=== PATIENT | male | born 1960 | race Caucasian/White ===

== ENCOUNTER 2018-09-29 23:19 | Inpatient (IN) ==
[2018-09-30] MEDS ORDERED: Acetaminophen 325 MG Tablet PO PRN (04:37)
[2018-09-30] MEDS ORDERED: Sodium Chloride 0.9% 2 ML Flush PRN IV.FLUSH (04:51)
[2018-09-30] MEDS: Sod Chloride 0.9% Inj 1,000 ML IV.CONT SCH ×2 (06:13→16:36)
[2018-09-30] MEDS: Morphine Sulfate Inj 2 MG/ML Vial IV.PUSH PRN ×2 (07:34→10:36)
[2018-09-30] MEDS: Sodium Chloride 0.9% 2 ML Flush BID IV.FLUSH SCH ×2 (09:01→21:50)
[2018-09-30] MEDS ORDERED: HYDROmorphone PF Inj 1 MG/ML Ampul IV.PUSH PRN (12:36)
[2018-09-30] MEDS ORDERED: Morphine Inj 4 MG/ML Vial IV.PUSH PRN (12:36)
[2018-09-30] MEDS ORDERED: Naloxone Inj 0.4 MG/ML Vial IV.PUSH PRN (12:36)
[2018-09-30] MEDS: Ciprofloxacin 400 MG/200 ML 400 MG/200 ML PIGGYBACK IV.SIG SCH (14:17)
[2018-09-30] MEDS: oxyCODONE/Acetaminophen 10/325 Tablet PO PRN ×2 (14:18→21:14)
--- NOTE | 2018-09-30 15:17 | P.HP ---
History of Present Illness Service: Hospitalist Primary Care Physician: UNKNOWN Chief Complaint: Abdominal pain History of Present Illness: Patient is a 58-year-old male who presented to the emergency room with a complaint of lower left quadrant and suprapubic abdominal pain for the last 5 days. He has a known history of diverticular colitis. Has previously had 4 other episodes but not as painful as this 1. He did take an antibiotic that his daughter gave him but he does not remember the name of it. He also states that he has been constipated and has not had a bowel movement in several days. He did take a laxative but it was not effective for him. He denies chest pain or shortness of breath. No nausea vomiting or diarrhea. He has had fevers and chills. Other past medical history is significant for GERD; patient does not have consistent primary care. Reports that he has controlled his acid reflux in the past with OTC Pepcid as needed. - Diagnosis (1) Diverticulitis Review of Systems All other systems reviewed negative except as stated in HPI [facility] - History History Provided By: Patient - Medical History Medical History: Medical History (Last Updated 09/30/18 @ 15:07 by MAGNOLIA Mcmanus) Degenerative disc disease Diverticula of intestine GERD (gastroesophageal reflux disease) Scoliosis - Surgical History Surgical History: Surgical History (Last Updated 09/30/18 @ 15:08 by MAGNOLIA Mcmanus) Hx of tonsillectomy - Family History Family History: Family History (Last Updated 09/30/18 @ 15:08 by MAGNOLIA Mcmanus) Mother Diverticula of colon - Social History I have reviewed the patient's Social History: Yes - Tobacco History Second Hand Smoke Exposure: No Tobacco Use In Past 30 Days: Yes Smoking Status: Current every day smoker Tobacco Type: Cigarettes - Alcohol History How Often Do You Have a Drink Containing Alcohol: Monthly or less - Substance Use History Substance History: No History of Abuse Medications and Allergies Active Medications: Active Medications Acetaminophen (Tylenol) 650 mg PO Q4H PRN PRN Reason: Temp > 100.4 Hydromorphone HCl (Dilaudid Pf Inj) 1 mg IV.PUSH Q3H PRN PRN Reason: BREAKTHROUGH PAIN Sodium Chloride (Ns Inj) 1,000 mls @ 100 mls/hr IV.CONT .Q10H [facility] Last Admin: 09/30/18 06:13 Dose: 100 mls/hr Ciprofloxacin/Dextrose (Cipro 400 Mg/200 Ml Inj) 400 mg in 200 mls @ 200 mls/ hr IV.SIG Q12H [facility] Last Admin: 09/30/18 14:17 Dose: 200 mls/hr Metronidazole/Sodium Chloride (Flagyl 500 Mg Inj) 100 mls @ 100 mls/hr IV.SIG Q6H [facility] Last Infusion: 09/30/18 10:28 Dose: Infused Morphine Sulfate (Morphine Inj) 4 mg IV.PUSH Q3H PRN PRN Reason: PAIN 6-10;IF UNABLE TO TAKE PO Naloxone HCl (Narcan Inj) 0.4 mg IV.PUSH UNSCH PRN PRN Reason: SEE LABEL COMMENTS Ondansetron HCl (Zofran Inj) 4 mg IV.PUSH Q6H PRN PRN Reason: NAUSEA OR VOMITING Oxycodone/Acetaminophen (Percocet 5/325 Mg) 1 tab PO Q6H PRN PRN Reason: PAIN SCALE 3 TO 5 Oxycodone/Acetaminophen (Percocet 10/325 Mg) 1 tab PO Q6H PRN PRN Reason: PAIN SCALE 6 TO 10 Last Admin: 09/30/18 14:18 Dose: 1 tab Sodium Chloride (Ns Flush) 2 ml IV.FLUSH BID [facility] Last Admin: 09/30/18 09:01 Dose: Not Given Sodium Chloride (Ns Flush) 2 ml IV.FLUSH PRN PRN PRN Reason: FLUSH AFTER USING IV ACCESS Allergies Allergy/AdvReac Type Severity Reaction Status Date / Time No Known Allergies Allergy Verified 09/29/18 23:35 Home Medications Medication Instructions Recorded Confirmed Type No Known Home Medications 09/29/18 09/29/18 History Exam Vital signs: Vital Signs 09/30/18 04:09 09/30/18 08:00 09/30/18 11:56 Temperature 99.5 F 98.2 F 98.0 F Pulse Rate 60 68 64 Respiratory Rate 19 18 20 Blood Pressure 132/71 140/78 136/74 Pulse Oximetry 97 99 96 Intake & Output 09/29/18 09/30/18 09/30/18 18:59 06:59 18:59 Intake Total 100 / 100 Balance 100 / 100 Weight 84 kg Intake: IV 100 / 100 Flagyl 500 MG Inj 100 ML @ 100 100 / 100 mls/hr IV.SIG Q6H [facility] Rx#: [id number] Other: # Voids 1 Date of Last Bowel Movement 09/27/18 Weight On Admission 84 kg Narrative: GENERAL: Well-nourished, well-developed adult male in no obvious distress. SKIN: Warm and dry. HEAD: Atraumatic. Normocephalic. CARDIOVASCULAR: Regular rate and rhythm. RESPIRATORY: No accessory muscle use. Clear to auscultation. Breath sounds equal bilaterally. GASTROINTESTINAL: Abdomen soft, tender LLQ, non-distended. Positive bowel sounds. MUSCULOSKELETAL: Extremities without clubbing, cyanosis, or edema. No obvious deformities. NEUROLOGICAL: Awake and alert. No obvious cranial nerve deficits. Motor grossly within normal limits. Normal speech. PSYCHIATRIC: Appropriate mood and affect; insight and judgment good. Caprini VTE Risk Assessment Caprini VTE Risk Assessment: No/Low Risk (score <= 1) Caprini Risk Assessment Model: Point Value = 1 Point Value = 2 Point Value = 3 Point Value = 5 Age 41-60 Minor surgery BMI > 25 kg/m2 Swollen legs Varicose veins or History of unexplained or recurrent spontaneous Oral contraceptives or hormone replacement Sepsis (< 1 month) Serious lung disease, including pneumonia (< 1 month) Abnormal pulmonary function Acute myocardial infarction Congestive heart failure (< 1 month) History of inflammatory bowel disease Medical patient at bed rest Age 61-74 Arthroscopic surgery Major open surgery (> 45 min) Laparoscopic surgery (> 45 min) Malignancy Confined to bed (> 72 hours) Immobilizing plaster cast Central venous access Age >= 75 History of VTE Family history of VTE Factor V Leiden Prothrombin [id number] Lupus anticoagulant Anticardiolipin antibodies Elevated serum homocysteine Heparin-induced thrombocytopenia Other congenital or acquired thrombophilia Stroke (< 1 month) Elective arthroplasty Hip, pelvis, or leg fracture Acute spinal cord injury (< 1 month) Prophylaxis Regimen: Total Risk Factor Score Risk Level Prophylaxis Regimen 0-1 Low Early ambulation 2 Moderate Order ONE of the following: *Sequential Compression Device (SCD) *Heparin 5000 units SQ BID 3-4 Higher Order ONE of the following medications: *Heparin 5000 units SQ TID *Enoxaparin/Lovenox 40 mg SQ daily (WT < 150 kg, CrCl > 30 mL/min) *Enoxaparin/Lovenox 30 mg SQ daily (WT < 150 kg, CrCl > 10-29 mL/min) *Enoxaparin/Lovenox 30 mg SQ BID (WT < 150 kg, CrCl > 30 mL/min) AND/OR *Sequential Compression Device (SCD) 5 or more Highest Order ONE of the following medications: *Heparin 5000 units SQ TID (Preferred with Epidurals) *Enoxaparin/Lovenox 40 mg SQ daily (WT < 150 kg, CrCl > 30 mL/min) *Enoxaparin/Lovenox 30 mg SQ daily (WT < 150 kg, CrCl > 10-29 mL/min) *Enoxaparin/Lovenox 30 mg SQ BID (WT < 150 kg, CrCl > 30 mL/min) AND *Sequential Compression Device (SCD) Assessment and Plan - Assessment (1) Diverticulitis Code(s): K57.92 - Diverticulitis of intestine, part unspecified, without perforation or abscess without bleeding Status: Acute - Plan Patient is a 58-year-old male with a past medical history of diverticulitis and GERD. He presented to the emergency room with left lower quadrant and suprapubic pain times 5 days. Diverticulitis -GI consulted -Started on Cipro and Flagyl -Pain control as needed DVT prophylaxis: SCDs; patient is ambulatory Discharge planning: Likely home. [facility] Prescription Drug Monitoring Database has been queried and verified prior to prescribing the controlled substance. Acute pain exception: This patient has normal, predicted, physiological, and time limited response to an adverse mechanical stimulus associated with surgery , trauma, or acute illness as described in my notes. There is a lack of alternative treatment options other than to include the prescribed narcotic treatment for this condition.
--- NOTE | 2018-09-30 15:35 | P.CONGI ---
History of Present Illness Consult date: 10/07/18 Consult reason: Sigmoid diverticulitis with small intramural abscess involving the proximal sigmoid Chief complaint: Sigmoid Diverticulitis w Small Intramural Abscess History of Present Illness: This patient is a 58-year-old male who presented to the emergency room at [facility] on 09/29/2018 with complaint of left lower quadrant and suprapubic abdominal pain for 5 days. Patient has a significant medical history of diverticulitis stating he has had 4 previous episodes in the past. Patient states he took laxatives and antibiotics given to him by a family member without any relief or effect. He states that this pain is more severe than any other episode that he has had in the past. He endorses nausea but denies vomiting. Patient denies any aggravating or alleviating factors and rates pain at 5 out of 10 at this time. States he had a temperature of 101. Patient denies any previous abdominal surgeries. Patient states he smokes 1 pack/day cigarettes and is a social drinker. He reports family history positive for diverticulitis and acid reflux. Patient states he gets occasional heartburn but takes Prilosec occasionally which relieves symptoms. Our service has been consulted to evaluate patient's sigmoid diverticulitis <Kacy Moseley - Last Filed: 09/30/18 15:21> Review of Systems All other systems reviewed negative except as stated in HPI <Kacy Moseley - Last Filed: 09/30/18 15:21> PMF[facility] - History History Provided By: Patient - Medical History Medical History: Medical History (Last Updated 09/30/18 @ 15:07 by MAGNOLIA Mcmanus) Degenerative disc disease Diverticula of intestine GERD (gastroesophageal reflux disease) Scoliosis - Surgical History Surgical History: Surgical History (Last Updated 09/30/18 @ 15:08 by MAGNOLIA Mcmanus) Hx of tonsillectomy - Family History Family History: Family History (Last Updated 09/30/18 @ 15:08 by MAGNOLIA Mcmanus) Mother Diverticula of colon - Tobacco History Second Hand Smoke Exposure: No Tobacco Use In Past 30 Days: Yes Smoking Status: Current every day smoker Tobacco Type: Cigarettes - Alcohol History How Often Do You Have a Drink Containing Alcohol: Monthly or less - Substance Use History Substance History: No History of Abuse <Kacy Moseley - Last Filed: 09/30/18 15:21> - Medical History Medical History: Medical History (Last Updated 09/30/18 @ 15:07 by MAGNOLIA Mcmanus) Degenerative disc disease Diverticula of intestine GERD (gastroesophageal reflux disease) Scoliosis - Surgical History Surgical History: Surgical History (Last Updated 09/30/18 @ 15:08 by MAGNOLIA Mcamnus) Hx of tonsillectomy - Family History Family History: Family History (Last Updated 09/30/18 @ 15:08 by MAGNOLIA Mcmanus) Mother Diverticula of colon <Jeanna Brito - Last Filed: 09/30/18 18:41> Medications and Allergies Active Medications: Active Medications Acetaminophen (Tylenol) 650 mg PO Q4H PRN PRN Reason: Temp > 100.4 Hydromorphone HCl (Dilaudid Pf Inj) 1 mg IV.PUSH Q3H PRN PRN Reason: BREAKTHROUGH PAIN Sodium Chloride (Ns Inj) 1,000 mls @ 100 mls/hr IV.CONT .Q10H [facility] Last Admin: 09/30/18 06:13 Dose: 100 mls/hr Ciprofloxacin/Dextrose (Cipro 400 Mg/200 Ml Inj) 400 mg in 200 mls @ 200 mls/ hr IV.SIG Q12H [facility] Last Admin: 09/30/18 14:17 Dose: 200 mls/hr Metronidazole/Sodium Chloride (Flagyl 500 Mg Inj) 100 mls @ 100 mls/hr IV.SIG Q6H [facility] Last Infusion: 09/30/18 10:28 Dose: Infused Morphine Sulfate (Morphine Inj) 4 mg IV.PUSH Q3H PRN PRN Reason: PAIN 6-10;IF UNABLE TO TAKE PO Naloxone HCl (Narcan Inj) 0.4 mg IV.PUSH UNSCH PRN PRN Reason: SEE LABEL COMMENTS Ondansetron HCl (Zofran Inj) 4 mg IV.PUSH Q6H PRN PRN Reason: NAUSEA OR VOMITING Oxycodone/Acetaminophen (Percocet 5/325 Mg) 1 tab PO Q6H PRN PRN Reason: PAIN SCALE 3 TO 5 Oxycodone/Acetaminophen (Percocet 10/325 Mg) 1 tab PO Q6H PRN PRN Reason: PAIN SCALE 6 TO 10 Last Admin: 09/30/18 14:18 Dose: 1 tab Sodium Chloride (Ns Flush) 2 ml IV.FLUSH BID [facility] Last Admin: 09/30/18 09:01 Dose: Not Given Sodium Chloride (Ns Flush) 2 ml IV.FLUSH PRN PRN PRN Reason: FLUSH AFTER USING IV ACCESS <Kacy Moseley - Last Filed: 09/30/18 15:21> Active Medications: Active Medications Acetaminophen (Tylenol) 650 mg PO Q4H PRN PRN Reason: Temp > 100.4 Hydromorphone HCl (Dilaudid Pf Inj) 1 mg IV.PUSH Q3H PRN PRN Reason: BREAKTHROUGH PAIN Sodium Chloride (Ns Inj) 1,000 mls @ 100 mls/hr IV.CONT .Q10H [facility] Last Admin: 09/30/18 16:36 Dose: 100 mls/hr Ciprofloxacin/Dextrose (Cipro 400 Mg/200 Ml Inj) 400 mg in 200 mls @ 200 mls/ hr IV.SIG Q12H [facility] Last Infusion: 09/30/18 16:37 Dose: Infused Metronidazole/Sodium Chloride (Flagyl 500 Mg Inj) 100 mls @ 100 mls/hr IV.SIG Q6H [facility] Last Infusion: 09/30/18 17:42 Dose: Infused Morphine Sulfate (Morphine Inj) 4 mg IV.PUSH Q3H PRN PRN Reason: PAIN 6-10;IF UNABLE TO TAKE PO Naloxone HCl (Narcan Inj) 0.4 mg IV.PUSH UNSCH PRN PRN Reason: SEE LABEL COMMENTS Ondansetron HCl (Zofran Inj) 4 mg IV.PUSH Q6H PRN PRN Reason: NAUSEA OR VOMITING Oxycodone/Acetaminophen (Percocet 5/325 Mg) 1 tab PO Q6H PRN PRN Reason: PAIN SCALE 3 TO 5 Oxycodone/Acetaminophen (Percocet 10/325 Mg) 1 tab PO Q6H PRN PRN Reason: PAIN SCALE 6 TO 10 Last Admin: 09/30/18 14:18 Dose: 1 tab Sodium Chloride (Ns Flush) 2 ml IV.FLUSH BID [facility] Last Admin: 09/30/18 09:01 Dose: Not Given Sodium Chloride (Ns Flush) 2 ml IV.FLUSH PRN PRN PRN Reason: FLUSH AFTER USING IV ACCESS <Jeanna Brito - Last Filed: 09/30/18 18:41> Allergies Allergy/AdvReac Type Severity Reaction Status Date / Time No Known Allergies Allergy Verified 09/29/18 23:35 Home Medications Medication Instructions Recorded Confirmed Type No Known Home Medications 09/29/18 09/29/18 History Exam Vital signs: Vital Signs 09/30/18 04:09 09/30/18 08:00 09/30/18 11:56 Temperature 99.5 F 98.2 F 98.0 F Pulse Rate 60 68 64 Respiratory Rate 19 18 20 Blood Pressure 132/71 140/78 136/74 Pulse Oximetry 97 99 96 Intake & Output 09/29/18 09/30/18 09/30/18 18:59 06:59 18:59 Intake Total 100 / 100 Balance 100 / 100 Weight 84 kg Intake: IV 100 / 100 Flagyl 500 MG Inj 100 ML @ 100 100 / 100 mls/hr IV.SIG Q6H [facility] Rx#: [id number] Other: # Voids 1 Date of Last Bowel Movement 09/27/18 Weight On Admission 84 kg - Constitutional no acute distress - Routine HEENT Exam Head: Present: normocephalic - Routine Respiratory Exam Present: CTA bilaterally. Absent: accessory muscle use - Routine Cardiovascular Exam Present: RRR - Routine Abdominal Exam Present: soft, normoactive bowel sounds, tenderness. Absent: distended, guarding, firm Comments: Suprapubic tenderness on palpation during exam - Routine Extremities Exam Present: full ROM, pulses intact. Absent: edema - Routine Skin Exam Present: dry, warm - Routine Neurological Exam Present: alert, oriented X3 <Moseley,Kacy - Last Filed: 09/30/18 15:21> Vital signs: Vital Signs 09/30/18 04:09 09/30/18 08:00 09/30/18 11:56 Temperature 99.5 F 98.2 F 98.0 F Pulse Rate 60 68 64 Respiratory Rate 19 18 20 Blood Pressure 132/71 140/78 136/74 Pulse Oximetry 97 99 96 09/30/18 16:30 Temperature 98.4 F Pulse Rate 64 Respiratory Rate 18 Blood Pressure 133/62 Pulse Oximetry 97 Intake & Output 09/29/18 09/30/18 09/30/18 18:59 06:59 18:59 Intake Total 1400 / 1400 Balance 1400 / 1400 Weight 84 kg Intake: IV 1400 / 1400 NS Inj 1,000 ML @ 100 mls/hr IV 1000 / 1000 .CONT .Q10H [facility] Rx#:[id number] Cipro 400 MG/200 ML Inj 400 mg 200 / 200 In 200 ml @ 200 mls/hr IV.SIG Q12H [facility] Rx#:[id number] Flagyl 500 MG Inj 100 ML @ 100 200 / 200 mls/hr IV.SIG Q6H [facility] Rx#: [id number] Other: # Voids 1 Date of Last Bowel Movement 09/27/18 Weight On Admission 84 kg <Jeanna Brito - Last Filed: 09/30/18 18:41> Assessment and Plan (1) Diverticulitis Status: Acute Code(s): K57.92 - Diverticulitis of intestine, part unspecified , without perforation or abscess without bleeding - Plan This patient is a 58-year-old male who presented to the emergency room at [facility] on 09/29/2018 with complaint of left lower quadrant and suprapubic abdominal pain for 5 days. Patient has a significant medical history of diverticulitis stating he has had 4 previous episodes in the past. Patient states he took laxatives and antibiotics given to him by a family member without any relief or effect. He states that this pain is more severe than any other episode that he has had in the past. He endorses nausea but denies vomiting. Patient denies any aggravating or alleviating factors and rates pain at 5 out of 10 at this time. States he had a temperature of 101. Patient denies any previous abdominal surgeries. Patient states he smokes 1 pack/day cigarettes and is a social drinker. He reports family history positive for diverticulitis and acid reflux. Patient states he gets occasional heartburn but takes Prilosec occasionally which relieves symptoms. Patient denies any history of ever having had endoscopy. Our service has been consulted to evaluate patient's sigmoid diverticulitis Diverticulitis 09/30/2018 CT abdomen and pelvis revealed the following findings: Prominent sigmoid diverticulitis with small intramural abscess involving the proximal sigmoid. WBC 12.4 hemoglobin 16.8 hematocrit 46.1 Plan -Clear liquid diet -Continue IV antibiotics -Monitor labs -Analgesics and antiemetics as per attending -Colonoscopy estimated 6 weeks post hospitalization -Supportive care -Further recommendations to follow This patient has been seen by myself and Dr. Brito and this note is written on her behalf - Attending Attestation Dr. Brito <Kacy Moseley - Last Filed: 09/30/18 15:21> (1) Diverticulitis Status: Acute Code(s): K57.92 - Diverticulitis of intestine, part unspecified , without perforation or abscess without bleeding - Attending Attestation seen, examined agree with above if no improvement consider general surgery eval <Jeanna Brito - Last Filed: 09/30/18 18:41>
[2018-10-01] MEDS: Ciprofloxacin 400 MG/200 ML 400 MG/200 ML PIGGYBACK IV.SIG SCH ×2 (01:17→14:59)
[2018-10-01] MEDS: Sod Chloride 0.9% Inj 1,000 ML IV.CONT SCH ×3 (01:17→22:00)
[2018-10-01] MEDS: oxyCODONE/Acetaminophen 10/325 Tablet PO PRN ×3 (05:05→20:52)
[2018-10-01 07:01] LABS: Baso % (Auto) 0.3 % (0.0-2.0); Eos % (Auto) 0.3 % (0.0-4.0); Hematocrit 43.6 % (39.0-51.0); Hemoglobin 15.4 gm/dL (13.0-17.0); Lymph # (Auto) 1.8 th/mm3 (1.0-4.8); Lymph % (Auto) 11.9 % (9.0-44.0); Mean Corpuscular HGB Conc 35.4 % (32.0-36.0); Mean Platelet Volume 8.3 fL (7.0-11.0); Mono # (Auto) 1.4 th/mm3 (0.0-0.9); Mono % (Auto) 9.3 % (0.0-8.0); Neut # (Auto) 11.6 th/mm3 (1.8-7.7); Neut % (Auto) 78.2 % (16.0-70.0); Platelet Count 218 th/mm3 (150-450); Red Blood Count 4.54 mil/mm3 (4.50-5.90); Red Cell Distribution Width 13.7 % (11.6-17.2); White Blood Count 14.8 th/mm3 (4.0-11.0)
[2018-10-01 07:23] LABS: Anion Gap 10 meq/L (5-15); Blood Urea Nitrogen 9 mg/dL (7-18); Calcium 8.3 mg/dL (8.5-10.1); Carbon Dioxide 23.6 meq/L (21.0-32.0); Chloride 104 meq/L (98-107); Glomerular Filtration Rate Greater Than 89 mL/min (>89); Glucose,Random 90 mg/dL (74-106); Potassium 3.9 meq/L (3.5-5.1); Sodium 138 meq/L (136-145)
--- NOTE | 2018-10-01 09:18 | P.PNGI ---
Subjective Interval history: Patient is resting in bed, significant other at bedside Patient complains of mid lower abdominal pain Patient states that he tried not taking his pain medication at 3 AM this morning , but that the pain was excruciating by 5 AM Denies any nausea or vomiting Tolerating clear liquids States that he had a liquidy bowel movement last night after 5 days of no BM <Alba Finley - Last Filed: 10/01/18 09:09> Physical Exam Vital signs: Vital Signs 09/30/18 11:56 09/30/18 16:30 09/30/18 20:00 Temperature 98.0 F 98.4 F 99.4 F Pulse Rate 64 64 75 Respiratory Rate 20 18 20 Blood Pressure 136/74 133/62 145/74 H Pulse Oximetry 96 97 94 L 10/01/18 00:00 10/01/18 03:33 10/01/18 07:30 Temperature 99.1 F 99.0 F 97.9 F Pulse Rate 59 L 66 64 Respiratory Rate 20 20 20 Blood Pressure 120/68 129/72 136/72 Pulse Oximetry 96 96 98 Intake & Output 09/30/18 10/01/18 10/01/18 18:59 06:59 18:59 Intake Total 1400 / 1400 2340 / 2340 Balance 1400 / 1400 2340 / 2340 Intake: IV 1400 / 1400 1400 / 1400 NS Inj 1,000 ML @ 100 mls/hr IV 1000 / 1000 1000 / 1000 .CONT .Q10H [facility] Rx#:[id number] Cipro 400 MG/200 ML Inj 400 mg 200 / 200 200 / 200 In 200 ml @ 200 mls/hr IV.SIG Q12H [facility] Rx#:[id number] Flagyl 500 MG Inj 100 ML @ 100 200 / 200 200 / 200 mls/hr IV.SIG Q6H [facility] Rx#: [id number] Oral 940 / 940 Other: # Voids 3 6 Date of Last Bowel Movement 09/30/18 - Constitutional no acute distress - Routine HEENT Exam Head: Present: normocephalic, atraumatic - Routine Respiratory Exam Absent: accessory muscle use - Routine Cardiovascular Exam Present: RRR - Routine Abdominal Exam Present: soft, normoactive bowel sounds, tenderness (mid lower abdominal pain ) . Absent: distended - Routine Skin Exam Present: dry, warm - Routine Neurological Exam Present: alert, oriented X3 <Alba Finley - Last Filed: 10/01/18 09:09> Vital signs: Vital Signs 09/30/18 20:00 10/01/18 00:00 10/01/18 03:33 Temperature 99.4 F 99.1 F 99.0 F Pulse Rate 75 59 L 66 Respiratory Rate 20 20 20 Blood Pressure 145/74 H 120/68 129/72 Pulse Oximetry 94 L 96 96 10/01/18 07:30 10/01/18 11:41 10/01/18 16:28 Temperature 97.9 F 97.9 F 99.5 F Pulse Rate 64 64 64 Respiratory Rate 20 20 20 Blood Pressure 136/72 139/79 143/79 H Pulse Oximetry 98 97 99 Intake & Output 10/01/18 10/01/18 10/02/18 06:59 18:59 06:59 Intake Total 2340 / 2340 1400 / 1400 Balance 2340 / 2340 1400 / 1400 Intake: IV 1400 / 1400 1400 / 1400 NS Inj 1,000 ML @ 100 mls/hr IV 1000 / 1000 1000 / 1000 .CONT .Q10H [facility] Rx#:[id number] Cipro 400 MG/200 ML Inj 400 mg 200 / 200 200 / 200 In 200 ml @ 200 mls/hr IV.SIG Q12H [facility] Rx#:[id number] Flagyl 500 MG Inj 100 ML @ 100 200 / 200 200 / 200 mls/hr IV.SIG Q6H [facility] Rx#: [id number] Oral 940 / 940 Other: # Voids 6 4 Date of Last Bowel Movement 09/30/18 <Jeanna Brito - Last Filed: 10/01/18 19:47> Results - Labs CBC & Chem 7: 10/01/18 05:30 10/01/18 05:30 Laboratory Results - last 24 hr 10/01/18 10/01/18 05:30 05:30 WBC 14.8 H RBC 4.54 Hgb 15.4 Hct 43.6 MCV 96.0 D MCH 34.0 MCHC 35.4 RDW 13.7 Plt Count 218 MPV 8.3 Neut % (Auto) 78.2 H Lymph % (Auto) 11.9 [place] % (Auto) 9.3 H Eos % (Auto) 0.3 Baso % (Auto) 0.3 Neut # (Auto) 11.6 H Lymph # (Auto) 1.8 [place] # (Auto) 1.4 H Eos # (Auto) 0.0 Baso # (Auto) 0.0 WBC Differential . Differential Comment Auto diff final Sodium 138 Potassium 3.9 D Chloride 104 Carbon Dioxide 23.6 Anion Gap 10 BUN 9 Creatinine 0.80 Estimated GFR Greater than 89 Random Glucose 90 Calcium 8.3 L D <DelorisclarissaUmeshAlba - Last Filed: 10/01/18 09:09> - Labs CBC & Chem 7: 10/01/18 05:30 10/01/18 05:30 Laboratory Results - last 24 hr 10/01/18 10/01/18 05:30 05:30 WBC 14.8 H RBC 4.54 Hgb 15.4 Hct 43.6 MCV 96.0 D MCH 34.0 MCHC 35.4 RDW 13.7 Plt Count 218 MPV 8.3 Neut % (Auto) 78.2 H Lymph % (Auto) 11.9 [place] % (Auto) 9.3 H Eos % (Auto) 0.3 Baso % (Auto) 0.3 Neut # (Auto) 11.6 H Lymph # (Auto) 1.8 [place] # (Auto) 1.4 H Eos # (Auto) 0.0 Baso # (Auto) 0.0 WBC Differential . Differential Comment Auto diff final Sodium 138 Potassium 3.9 D Chloride 104 Carbon Dioxide 23.6 Anion Gap 10 BUN 9 Creatinine 0.80 Estimated GFR Greater than 89 Random Glucose 90 Calcium 8.3 L D <Jeanna Brito - Last Filed: 10/01/18 19:47> Assessment and Plan (1) Diverticulitis Status: Inactive Code(s): K57.92 - Diverticulitis of intestine, part unspecified, without perforation or abscess without bleeding - Plan Assessment Diverticulitis with intramural abscesspatient reports 4-5 previous episodes of diverticulitis, most recently in January of this year. Pt complaining of mid lower abdominal pain that began on but became unbearable on Saturday after eating nuts. Denies previous colonoscopy. CT abd/pelvis W IV contrast (09/30) prominent sigmoid diverticulitis with small intramural abscess involving the proximal sigmoid. Acid reflux- Pt reports episodes of GERD. Takes Prilosec OTC on an as needed basis. Has never had EGD Plan: Consult GS Continue Clear liquid diet Flagyl/Cipro Pain control IV fluids Colonoscopy in 6-8 weeks after healing Recommend EGD at that time Protonix Further recommendations pending course Patient has been seen and examined by myself and Dr. Brito and this note is written on her behalf <Alba Finley - Last Filed: 10/01/18 09:09> (1) Diverticulitis Status: Inactive Code(s): K57.92 - Diverticulitis of intestine, part unspecified, without perforation or abscess without bleeding - Attending Attestation seen, examined agree with above <Jeanna Brito - Last Filed: 10/01/18 19:47>
[2018-10-01] MEDS: Sodium Chloride 0.9% 2 ML Flush BID IV.FLUSH SCH ×2 (11:57→20:49)
--- NOTE | 2018-10-01 13:31 | P.PN ---
Subjective Interval history: Patient is seen lying in bed. He reports that he is still very painful. He did have a large liquid bowel movement yesterday with some relief of pain. No nausea or vomiting. No fever or chills. Physical Exam Vital signs: Vital Signs 09/30/18 16:30 09/30/18 20:00 10/01/18 00:00 Temperature 98.4 F 99.4 F 99.1 F Pulse Rate 64 75 59 L Respiratory Rate 18 20 20 Blood Pressure 133/62 145/74 H 120/68 Pulse Oximetry 97 94 L 96 10/01/18 03:33 10/01/18 07:30 10/01/18 11:41 Temperature 99.0 F 97.9 F 97.9 F Pulse Rate 66 64 64 Respiratory Rate 20 20 20 Blood Pressure 129/72 136/72 139/79 Pulse Oximetry 96 98 97 Intake & Output 09/30/18 10/01/18 10/01/18 18:59 06:59 18:59 Intake Total 1400 / 1400 2340 / 2340 900 / 900 Balance 1400 / 1400 2340 / 2340 900 / 900 Intake: IV 1400 / 1400 1400 / 1400 900 / 900 NS Inj 1,000 ML @ 100 mls/hr IV 1000 / 1000 1000 / 1000 800 / 800 .CONT .Q10H [facility] Rx#:[id number] Cipro 400 MG/200 ML Inj 400 mg 200 / 200 200 / 200 In 200 ml @ 200 mls/hr IV.SIG Q12H [facility] Rx#:[id number] Flagyl 500 MG Inj 100 ML @ 100 200 / 200 200 / 200 100 / 100 mls/hr IV.SIG Q6H [facility] Rx#: [id number] Oral 940 / 940 Other: # Voids 3 6 Date of Last Bowel Movement 09/30/18 Narrative: GENERAL: Well-nourished, well-developed adult male in no obvious distress. SKIN: Warm and dry. HEAD: Atraumatic. Normocephalic. CARDIOVASCULAR: Regular rate and rhythm. RESPIRATORY: No accessory muscle use. Clear to auscultation. Breath sounds equal bilaterally. GASTROINTESTINAL: Abdomen soft, tender LLQ, non-distended. Positive bowel sounds. MUSCULOSKELETAL: Extremities without clubbing, cyanosis, or edema. No obvious deformities. NEUROLOGICAL: Awake and alert. No obvious cranial nerve deficits. Motor grossly within normal limits. Normal speech. PSYCHIATRIC: Appropriate mood and affect; insight and judgment good. Results - Labs CBC & Chem 7: 10/01/18 05:30 10/01/18 05:30 Laboratory Results - last 24 hr 10/01/18 10/01/18 05:30 05:30 WBC 14.8 H RBC 4.54 Hgb 15.4 Hct 43.6 MCV 96.0 D MCH 34.0 MCHC 35.4 RDW 13.7 Plt Count 218 MPV 8.3 Neut % (Auto) 78.2 H Lymph % (Auto) 11.9 [place] % (Auto) 9.3 H Eos % (Auto) 0.3 Baso % (Auto) 0.3 Neut # (Auto) 11.6 H Lymph # (Auto) 1.8 [place] # (Auto) 1.4 H Eos # (Auto) 0.0 Baso # (Auto) 0.0 WBC Differential . Differential Comment Auto diff final Sodium 138 Potassium 3.9 D Chloride 104 Carbon Dioxide 23.6 Anion Gap 10 BUN 9 Creatinine 0.80 Estimated GFR Greater than 89 Random Glucose 90 Calcium 8.3 L D Assessment and Plan - Assessment (1) Diverticulitis of intestine with abscess Code(s): K57.80 - Diverticulitis of intestine, part unspecified, with perforation and abscess without bleeding Status: Acute - Plan Patient is a 58-year-old male with a past medical history of diverticulitis and GERD. He presented to the emergency room with left lower quadrant and suprapubic pain times 5 days. Diverticulitis -GI consulted -recommending colonoscopy and EGD as outpatient after 6-8 weeks of healing. General surgery consulted by GI for additional evaluation. -Started on Cipro and Flagyl -Pain control as needed DVT prophylaxis: SCDs; patient is ambulatory Discharge planning: Likely home.
[2018-10-02] MEDS: Ciprofloxacin 400 MG/200 ML 400 MG/200 ML PIGGYBACK IV.SIG SCH ×2 (01:02→13:32)
[2018-10-02] MEDS: oxyCODONE/Acetaminophen 10/325 Tablet PO PRN ×3 (01:02→19:57)
[2018-10-02 07:35] LABS: Baso # (Auto) 0.1 th/mm3 (0.0-0.2); Baso % (Auto) 0.4 % (0.0-2.0); Eos % (Auto) 0.1 % (0.0-4.0); Hematocrit 43.8 % (39.0-51.0); Hemoglobin 15.4 gm/dL (13.0-17.0); Lymph # (Auto) 1.4 th/mm3 (1.0-4.8); Lymph % (Auto) 9.7 % (9.0-44.0); Mean Corpuscular HGB Conc 35.1 % (32.0-36.0); Mean Corpuscular Hemoglobin 34.3 pg (27.0-34.0); Mean Corpuscular Volume 97.6 fL (80.0-100.0); Mean Platelet Volume 8.5 fL (7.0-11.0); Mono # (Auto) 1.1 th/mm3 (0.0-0.9); Mono % (Auto) 7.3 % (0.0-8.0); Neut # (Auto) 12.1 th/mm3 (1.8-7.7); Neut % (Auto) 82.5 % (16.0-70.0); Platelet Count 214 th/mm3 (150-450); Red Blood Count 4.49 mil/mm3 (4.50-5.90); Red Cell Distribution Width 13.3 % (11.6-17.2); White Blood Count 14.6 th/mm3 (4.0-11.0)
[2018-10-02 07:54] LABS: Anion Gap 8 meq/L (5-15); Blood Urea Nitrogen 7 mg/dL (7-18); Calcium 8.2 mg/dL (8.5-10.1); Carbon Dioxide 27.6 meq/L (21.0-32.0); Chloride 104 meq/L (98-107); Glomerular Filtration Rate Greater Than 89 mL/min (>89); Glucose,Random 99 mg/dL (74-106); Potassium 4.2 meq/L (3.5-5.1); Sodium 140 meq/L (136-145)
[2018-10-02] MEDS: Sod Chloride 0.9% Inj 1,000 ML IV.CONT SCH ×2 (09:03→16:45)
[2018-10-02] MEDS: Sodium Chloride 0.9% 2 ML Flush BID IV.FLUSH SCH ×2 (09:03→20:57)
--- NOTE | 2018-10-02 12:14 | P.PNGI ---
Subjective Interval history: Patient laying supine in bed Denies any nausea vomiting, states tolerating clear liquids well No BM yet today <Kacy Moseley - Last Filed: 10/02/18 12:08> Physical Exam Vital signs: Vital Signs 10/01/18 16:28 10/01/18 20:00 10/02/18 00:00 Temperature 99.5 F 98.6 F 98.6 F Pulse Rate 64 54 L 71 Respiratory Rate 20 19 18 Blood Pressure 143/79 H 142/75 H 142/84 H Pulse Oximetry 99 95 99 10/02/18 04:00 10/02/18 08:00 Temperature 98.5 F 98.5 F Pulse Rate 60 60 Respiratory Rate 18 16 Blood Pressure 134/70 141/79 H Pulse Oximetry 98 98 Intake & Output 10/01/18 10/02/18 10/02/18 18:59 06:59 18:59 Intake Total 1400 / 1400 1400 / 1400 100 / 100 Balance 1400 / 1400 1400 / 1400 100 / 100 Weight 84.5 kg Intake: IV 1400 / 1400 1400 / 1400 100 / 100 NS Inj 1,000 ML @ 100 mls/hr IV 1000 / 1000 1000 / 1000 .CONT .Q10H [facility] Rx#:[id number] Cipro 400 MG/200 ML Inj 400 mg 200 / 200 200 / 200 In 200 ml @ 200 mls/hr IV.SIG Q12H [facility] Rx#:[id number] Flagyl 500 MG Inj 100 ML @ 100 200 / 200 200 / 200 100 / 100 mls/hr IV.SIG Q6H [facility] Rx#: [id number] Other: # Voids 4 - Constitutional no acute distress - Routine HEENT Exam Head: Present: normocephalic - Routine Respiratory Exam Present: CTA bilaterally. Absent: accessory muscle use - Routine Abdominal Exam Present: soft, normoactive bowel sounds. Absent: tenderness, distended, guarding, firm - Routine Skin Exam Present: dry, warm - Routine Neurological Exam Present: alert - Routine Psychiatric Exam Present: normal affect, cooperative <Kacy Moseley - Last Filed: 10/02/18 12:08> Vital signs: Vital Signs 10/02/18 00:00 10/02/18 04:00 10/02/18 08:00 Temperature 98.6 F 98.5 F 98.5 F Pulse Rate 71 60 60 Respiratory Rate 18 18 16 Blood Pressure 142/84 H 134/70 141/79 H Pulse Oximetry 99 98 98 10/02/18 15:41 10/02/18 19:15 10/02/18 20:51 Temperature 99.0 F 98.7 F Pulse Rate 59 L 60 Respiratory Rate 18 17 18 Blood Pressure 131/74 128/63 Pulse Oximetry 96 96 Intake & Output 10/02/18 10/02/18 10/03/18 06:59 18:59 06:59 Intake Total 1400 / 1400 400 / 400 100 / 100 Balance 1400 / 1400 400 / 400 100 / 100 Weight 84.5 kg Intake: IV 1400 / 1400 400 / 400 100 / 100 NS Inj 1,000 ML @ 100 mls/hr IV 1000 / 1000 .CONT .Q10H [facility] Rx#:[id number] Cipro 400 MG/200 ML Inj 400 mg 200 / 200 200 / 200 In 200 ml @ 200 mls/hr IV.SIG Q12H [facility] Rx#:[id number] Flagyl 500 MG Inj 100 ML @ 100 200 / 200 200 / 200 100 / 100 mls/hr IV.SIG Q6H [facility] Rx#: [id number] Other: # Voids 2 <Jeanna Brito - Last Filed: 10/02/18 21:45> Results - Labs CBC & Chem 7: 10/02/18 06:06 10/02/18 06:06 Laboratory Results - last 24 hr 10/02/18 10/02/18 06:06 06:06 WBC 14.6 H RBC 4.49 L Hgb 15.4 Hct 43.8 MCV 97.6 MCH 34.3 H MCHC 35.1 RDW 13.3 Plt Count 214 MPV 8.5 Neut % (Auto) 82.5 H Lymph % (Auto) 9.7 [place] % (Auto) 7.3 Eos % (Auto) 0.1 Baso % (Auto) 0.4 Neut # (Auto) 12.1 H Lymph # (Auto) 1.4 [place] # (Auto) 1.1 H Eos # (Auto) 0.0 Baso # (Auto) 0.1 WBC Differential . Differential Comment Auto diff final Sodium 140 Potassium 4.2 Chloride 104 Carbon Dioxide 27.6 Anion Gap 8 BUN 7 Creatinine 0.76 Estimated GFR Greater than 89 Random Glucose 99 Calcium 8.2 L <Kacy Moseley - Last Filed: 10/02/18 12:08> - Labs CBC & Chem 7: 10/02/18 06:06 10/02/18 06:06 Laboratory Results - last 24 hr 10/02/18 10/02/18 06:06 06:06 WBC 14.6 H RBC 4.49 L Hgb 15.4 Hct 43.8 MCV 97.6 MCH 34.3 H MCHC 35.1 RDW 13.3 Plt Count 214 MPV 8.5 Neut % (Auto) 82.5 H Lymph % (Auto) 9.7 [place] % (Auto) 7.3 Eos % (Auto) 0.1 Baso % (Auto) 0.4 Neut # (Auto) 12.1 H Lymph # (Auto) 1.4 [place] # (Auto) 1.1 H Eos # (Auto) 0.0 Baso # (Auto) 0.1 WBC Differential . Differential Comment Auto diff final Sodium 140 Potassium 4.2 Chloride 104 Carbon Dioxide 27.6 Anion Gap 8 BUN 7 Creatinine 0.76 Estimated GFR Greater than 89 Random Glucose 99 Calcium 8.2 L <Jeanna Brito - Last Filed: 10/02/18 21:45> Assessment and Plan (1) Diverticulitis Status: Inactive Code(s): K57.92 - Diverticulitis of intestine, part unspecified, without perforation or abscess without bleeding - Plan Assessment Diverticulitis with intramural abscesspatient reports 4-5 previous episodes of diverticulitis, most recently in January of this year. Pt complaining of mid lower abdominal pain that began on but became unbearable on Saturday after eating nuts. Denies previous colonoscopy. CT abd/pelvis W IV contrast (09/30) prominent sigmoid diverticulitis with small intramural abscess involving the proximal sigmoid. Acid reflux- Pt reports episodes of GERD. Takes Prilosec OTC on an as needed basis. Has never had EGD 10/02/2018 Diverticulitis with intramural abscess Patient reporting mild abdominal intermittent tenderness BM last night, loose to soft stools. No BM yet today WBC 14.6 hemoglobin 15.4 hematocrit 43.9 Plan -Clear liquid diet -Continue IV antibiotics-ciprofloxacin/Flagyl -Analgesics and antiemetics as per attending -Will add PPI -Continue IV hydration -Discussed need for colonoscopy 6-8 weeks post discharge -Supportive care -Further recommendations to follow Patient has been seen and examined by myself and Dr. Brito and this note is written on her behalf - Attending Attestation Dr. Brito <Kacy Moseley - Last Filed: 10/02/18 12:08> (1) Diverticulitis Status: Inactive Code(s): K57.92 - Diverticulitis of intestine, part unspecified, without perforation or abscess without bleeding - Attending Attestation seen, examined agree with above surgical consult noted <Jeanna Brito - Last Filed: 10/02/18 21:45>
--- NOTE | 2018-10-02 12:58 | P.PN ---
Subjective Interval history: Patient seen lying in bed. is at bedside. Patient reports that pain has been well controlled. He did have an additional bowel movement this morning without difficulty. Mild nausea with IV antibiotic administration but no problem with clear liquid diet. Physical Exam Vital signs: Vital Signs 10/01/18 16:28 10/01/18 20:00 10/02/18 00:00 Temperature 99.5 F 98.6 F 98.6 F Pulse Rate 64 54 L 71 Respiratory Rate 20 19 18 Blood Pressure 143/79 H 142/75 H 142/84 H Pulse Oximetry 99 95 99 10/02/18 04:00 10/02/18 08:00 Temperature 98.5 F 98.5 F Pulse Rate 60 60 Respiratory Rate 18 16 Blood Pressure 134/70 141/79 H Pulse Oximetry 98 98 Intake & Output 10/01/18 10/02/18 10/02/18 18:59 06:59 18:59 Intake Total 1400 / 1400 1400 / 1400 100 / 100 Balance 1400 / 1400 1400 / 1400 100 / 100 Weight 84.5 kg Intake: IV 1400 / 1400 1400 / 1400 100 / 100 NS Inj 1,000 ML @ 100 mls/hr IV 1000 / 1000 1000 / 1000 .CONT .Q10H [facility] Rx#:[id number] Cipro 400 MG/200 ML Inj 400 mg 200 / 200 200 / 200 In 200 ml @ 200 mls/hr IV.SIG Q12H [facility] Rx#:[id number] Flagyl 500 MG Inj 100 ML @ 100 200 / 200 200 / 200 100 / 100 mls/hr IV.SIG Q6H [facility] Rx#: [id number] Other: # Voids 4 Narrative: GENERAL: Well-nourished, well-developed adult male in no obvious distress. SKIN: Warm and dry. HEAD: Atraumatic. Normocephalic. CARDIOVASCULAR: Regular rate and rhythm. RESPIRATORY: No accessory muscle use. Clear to auscultation. Breath sounds equal bilaterally. GASTROINTESTINAL: Abdomen soft, tender LLQ, non-distended. Positive bowel sounds. MUSCULOSKELETAL: Extremities without clubbing, cyanosis, or edema. No obvious deformities. NEUROLOGICAL: Awake and alert. No obvious cranial nerve deficits. Motor grossly within normal limits. Normal speech. PSYCHIATRIC: Appropriate mood and affect; insight and judgment good. Results - Labs CBC & Chem 7: 10/02/18 06:06 10/02/18 06:06 Laboratory Results - last 24 hr 10/02/18 10/02/18 06:06 06:06 WBC 14.6 H RBC 4.49 L Hgb 15.4 Hct 43.8 MCV 97.6 MCH 34.3 H MCHC 35.1 RDW 13.3 Plt Count 214 MPV 8.5 Neut % (Auto) 82.5 H Lymph % (Auto) 9.7 [place] % (Auto) 7.3 Eos % (Auto) 0.1 Baso % (Auto) 0.4 Neut # (Auto) 12.1 H Lymph # (Auto) 1.4 [place] # (Auto) 1.1 H Eos # (Auto) 0.0 Baso # (Auto) 0.1 WBC Differential . Differential Comment Auto diff final Sodium 140 Potassium 4.2 Chloride 104 Carbon Dioxide 27.6 Anion Gap 8 BUN 7 Creatinine 0.76 Estimated GFR Greater than 89 Random Glucose 99 Calcium 8.2 L Assessment and Plan - Assessment (1) Diverticulitis of intestine with abscess Code(s): K57.80 - Diverticulitis of intestine, part unspecified, with perforation and abscess without bleeding Status: Acute - Plan Patient is a 58-year-old male with a past medical history of diverticulitis and GERD. He presented to the emergency room with left lower quadrant and suprapubic pain times 5 days. Diverticulitis -GI consulted -recommending colonoscopy and EGD as outpatient after 6-8 weeks of healing. General surgery consulted by GI for additional evaluation. -Started on Cipro and Flagyl -Pain control as needed DVT prophylaxis: SCDs; patient is ambulatory Discharge planning: Likely home. Patient can go once cleared by GI/surgery. Will likely need p.o. ABX at discharge
[2018-10-02] MEDS: Pantoprazole Inj 40 MG Vial IV.PUSH SCH (13:28)
--- NOTE | 2018-10-02 16:11 | P.CONGS ---
[facility] Surgery Consult Note Consult date: 10/02/18 Reason for consult: other (Diverticulitis) Requesting physician: Alba Finley Narrative: CONSULTATION NOTE FOR SURGICAL ATTENDING, DR. EL ROJO This is a 58-year-old male with a past medical history of diverticulitis, degenerative disc disease, GERD, and scoliosis. The patient came to the emergency room 2 days ago with complaints of left lower quadrant abdominal pain with associated nausea, vomiting, fevers and chills. The patient reports that he had about a 5-day history of constipation prior to admission. He reports this is his fourth or fifth episode of diverticulitis. His last episode of diverticulitis was in January and he was admitted to [facility] in [place]. He has not been evaluated by a surgeon before. He has never had a colonoscopy. He states he was referred for colonoscopy but has not been able to do so since he has no insurance. The patient has been started on Cipro and Flagyl. The patient's white blood cell count is 14,000. A CT abdomen pelvis was obtained which shows prominent sigmoid diverticulitis with small intramural abscess in the proximal sigmoid. A General Surgery consultation has been requested. Review of Systems All other systems reviewed negative except as stated in HPI PMFSH - History History Provided By: Patient - Medical History Medical History: Medical History (Last Reviewed 10/02/18 @ 18:34 by El Rojo MD) Degenerative disc disease Diverticula of intestine GERD (gastroesophageal reflux disease) Scoliosis - Surgical History Surgical History: Surgical History (Last Reviewed 10/02/18 @ 18:34 by El Rojo MD) Hx of tonsillectomy - Family History Family History: Family History (Last Reviewed 10/02/18 @ 18:34 by El Rojo MD) Mother Diverticula of colon - Social History I have reviewed the patient's Social History: Yes - Tobacco History Second Hand Smoke Exposure: No Tobacco Use In Past 30 Days: Yes Smoking Status: Current every day smoker Tobacco Type: Cigarettes - Alcohol History How Often Do You Have a Drink Containing Alcohol: Monthly or less - Substance Use History Substance History: No History of Abuse - Immunization History Tetanus Immunization: Unsure Hx Influenza Vaccine This Season: No Medications and Allergies Allergies Allergy/AdvReac Type Severity Reaction Status Date / Time No Known Allergies Allergy Verified 09/29/18 23:35 Home Medications Medication Instructions Recorded Confirmed Type No Known Home Medications 09/29/18 10/01/18 History Active Medications: Active Medications Acetaminophen (Tylenol) 650 mg PO Q4H PRN PRN Reason: Temp > 100.4 Last Admin: 10/01/18 16:38 Dose: 650 mg Hydromorphone HCl (Dilaudid Pf Inj) 1 mg IV.PUSH Q3H PRN PRN Reason: BREAKTHROUGH PAIN Sodium Chloride (Ns Inj) 1,000 mls @ 100 mls/hr IV.CONT .Q10H PENDING SALE TO [facility] Last Infusion: 10/02/18 13:36 Dose: 0 mls/hr Ciprofloxacin/Dextrose (Cipro 400 Mg/200 Ml Inj) 400 mg in 200 mls @ 200 mls/ hr IV.SIG Q12H [facility] Last Infusion: 10/02/18 15:44 Dose: Infused Metronidazole/Sodium Chloride (Flagyl 500 Mg Inj) 100 mls @ 100 mls/hr IV.SIG Q6H [facility] Last Infusion: 10/02/18 11:58 Dose: Infused Morphine Sulfate (Morphine Inj) 4 mg IV.PUSH Q3H PRN PRN Reason: PAIN 6-10;IF UNABLE TO TAKE PO Last Admin: 09/30/18 18:44 Dose: 4 mg Naloxone HCl (Narcan Inj) 0.4 mg IV.PUSH UNSCH PRN PRN Reason: SEE LABEL COMMENTS Ondansetron HCl (Zofran Inj) 4 mg IV.PUSH Q6H PRN PRN Reason: NAUSEA OR VOMITING Last Admin: 10/02/18 13:26 Dose: 4 mg Oxycodone/Acetaminophen (Percocet 5/325 Mg) 1 tab PO Q6H PRN PRN Reason: PAIN SCALE 3 TO 5 Last Admin: 10/02/18 13:25 Dose: 1 tab Oxycodone/Acetaminophen (Percocet 10/325 Mg) 1 tab PO Q6H PRN PRN Reason: PAIN SCALE 6 TO 10 Last Admin: 10/02/18 06:48 Dose: 1 tab Pantoprazole Sodium (Protonix Inj) 40 mg IV.PUSH Q12H PENDING SALE TO [facility] Last Admin: 10/02/18 13:28 Dose: 40 mg Sodium Chloride (Ns Flush) 2 ml IV.FLUSH BID PENDING SALE TO [facility] Last Admin: 10/02/18 09:03 Dose: Not Given Sodium Chloride (Ns Flush) 2 ml IV.FLUSH PRN PRN PRN Reason: FLUSH AFTER USING IV ACCESS Exam Vital signs: Vital Signs 10/01/18 16:28 10/01/18 20:00 10/02/18 00:00 Temperature 99.5 F 98.6 F 98.6 F Pulse Rate 64 54 L 71 Respiratory Rate 20 19 18 Blood Pressure 143/79 H 142/75 H 142/84 H Pulse Oximetry 99 95 99 10/02/18 04:00 10/02/18 08:00 10/02/18 15:41 Temperature 98.5 F 98.5 F 99.0 F Pulse Rate 60 60 59 L Respiratory Rate 18 16 18 Blood Pressure 134/70 141/79 H 131/74 Pulse Oximetry 98 98 96 Intake & Output 10/01/18 10/02/18 10/02/18 18:59 06:59 18:59 Intake Total 1400 / 1400 1400 / 1400 300 / 300 Balance 1400 / 1400 1400 / 1400 300 / 300 Weight 84.5 kg Intake: IV 1400 / 1400 1400 / 1400 300 / 300 NS Inj 1,000 ML @ 100 mls/hr IV 1000 / 1000 1000 / 1000 .CONT .Q10H PENDING SALE TO [facility] Rx#:[id number] Cipro 400 MG/200 ML Inj 400 mg 200 / 200 200 / 200 200 / 200 In 200 ml @ 200 mls/hr IV.SIG Q12H [facility] Rx#:[id number] Flagyl 500 MG Inj 100 ML @ 100 200 / 200 200 / 200 100 / 100 mls/hr IV.SIG Q6H [facility] Rx#: [id number] Other: # Voids 4 Narrative: GENERAL: 58-year-old male resting in bed in no acute distress. SKIN: Warm and dry. HEAD: Atraumatic. Normocephalic. EYES: Pupils equal and round. No scleral icterus. No injection or drainage. ENT: No nasal bleeding or discharge. Mucous membranes pink and moist. NECK: Trachea midline. CARDIOVASCULAR: Regular rate and rhythm. RESPIRATORY: No accessory muscle use. Clear to auscultation. Breath sounds equal bilaterally. GASTROINTESTINAL: Abdomen soft, nondistended. LLQ tenderness with palpation. Umbilical hernia. No visible scars. MUSCULOSKELETAL: Extremities without clubbing, cyanosis, or edema. No obvious deformities. NEUROLOGICAL: Awake and alert. No obvious cranial nerve deficits. Motor grossly within normal limits. Five out of 5 muscle strength in the arms and legs. Normal speech. PSYCHIATRIC: Appropriate mood and affect; insight and judgment normal. Results - Labs 10/02/18 06:06 10/02/18 06:06 Laboratory Results WBC 14.6 th/mm3 (4.0-11.0) H 10/02/18 06:06 RBC 4.49 mil/mm3 (4.50-5.90) L 10/02/18 06:06 Hgb 15.4 gm/dL (13.0-17.0) 10/02/18 06:06 Hct 43.8 % (39.0-51.0) 10/02/18 06:06 MCV 97.6 fL (80.0-100.0) 10/02/18 06:06 MCH 34.3 pg (27.0-34.0) H 10/02/18 06:06 MCHC 35.1 % (32.0-36.0) 10/02/18 06:06 RDW 13.3 % (11.6-17.2) 10/02/18 06:06 Plt Count 214 th/mm3 (150-450) 10/02/18 06:06 MPV 8.5 fL (7.0-11.0) 10/02/18 06:06 Neut % (Auto) 82.5 % (16.0-70.0) H 10/02/18 06:06 Lymph % (Auto) 9.7 % (9.0-44.0) 10/02/18 06:06 [place] % (Auto) 7.3 % (0.0-8.0) 10/02/18 06:06 Eos % (Auto) 0.1 % (0.0-4.0) 10/02/18 06:06 Baso % (Auto) 0.4 % (0.0-2.0) 10/02/18 06:06 Neut # (Auto) 12.1 th/mm3 (1.8-7.7) H 10/02/18 06:06 Lymph # (Auto) 1.4 th/mm3 (1.0-4.8) 10/02/18 06:06 [place] # (Auto) 1.1 th/mm3 (0.0-0.9) H 10/02/18 06:06 Eos # (Auto) 0.0 th/mm3 (0.0-0.4) 10/02/18 06:06 Baso # (Auto) 0.1 th/mm3 (0.0-0.2) 10/02/18 06:06 WBC Differential . 10/02/18 06:06 Differential Comment Auto diff final 10/02/18 06:06 Sodium 140 meq/L (136-145) 10/02/18 06:06 Potassium 4.2 meq/L (3.5-5.1) 10/02/18 06:06 Chloride 104 meq/L (98-107) 10/02/18 06:06 Carbon Dioxide 27.6 meq/L (21.0-32.0) 10/02/18 06:06 Anion Gap 8 meq/L (5-15) 10/02/18 06:06 BUN 7 mg/dL (7-18) 10/02/18 06:06 Creatinine 0.76 mg/dL (0.60-1.30) 10/02/18 06:06 Estimated GFR Greater than 89 mL/min (>89) 10/02/18 06:06 Random Glucose 99 mg/dL (74-106) 10/02/18 06:06 Calcium 8.2 mg/dL (8.5-10.1) L 10/02/18 06:06 - Imaging Imaging: CT abdomen pelvis FINDINGS: Lower Lungs: The visualized lower lungs are clear. Liver: The liver has a homogeneous density without space-occupying lesion. There is no dilation of the biliary tree. Spleen: Homogeneous density without enlargement. Pancreas: Unremarkable without mass or calcification. Kidneys: Normal in size and shape. No evidence of mass or hydronephrosis. Adrenal Glands: Low-density enlargement of the adrenal glands bilaterally. Aorta: The aorta and proximal iliac vessels are grossly unremarkable without aneurysmal dilation. Bowel/Mesentery: Prominent distal colonic diverticulosis. Pronounced inflammatory changes and wall thickening involving the sigmoid colon with a slightly greater than 3 x 1.5 cm low density focus which has the appearance of an intramural abscess involving the proximal sigmoid. No evidence of pneumoperitoneum Abdominal Wall: Intact. Retroperitoneum: No evidence of adenopathy in the retrocrural, para-aortic, or deep pelvic regions. Bladder: Contours are smooth. Reproductive Organs: No abnormal masses or calcifications seen. Inguinal: The inguinal region is unremarkable without evidence of adenopathy. Bony Structures: Unremarkable. CONCLUSION: Prominent sigmoid diverticulitis with small intramural abscess involving the proximal sigmoid. CT scan - abdomen: report reviewed, image reviewed CT scan - pelvis: report reviewed, image reviewed Assessment and Plan - Assessment (1) Diverticulitis of intestine with abscess Code(s): K57.80 - Diverticulitis of intestine, part unspecified, with perforation and abscess without bleeding Status: Acute Qualifiers: Diverticulitis site: large intestine Diverticulitis bleeding: without bleeding Qualified Code(s): K57.20 - Diverticulitis of large intestine with perforation and abscess without bleeding Plan: 58 year old male with diverticulitis -Discussed with Dr. Borja---abscess not large enough to drain -Plan to continue IV Cipro/Flagyl -If he does not progress and his WBC does not decrease can rescan to evaluate abscess again in the next 48 hours or so -Continue clear liquid diet -Discussed non operative treatment (IV antibiotics) vs operative intervention ( sigmoid resection with possible colostomy) -Patient will require outpatient GI colonoscopy in about 6-8 weeks for evaluation of the sigmoid and likely sigmoid resection electively -Discussed with patient that every episode of diverticulitis increased his risk of perforation including septic shock, colostomy ect -I have asked CM to assist to see if patient can apply for patient assistance -Thank you for this consult; We will continue to follow - Plan 58-year-old gentleman with numerous bouts of diverticulitis now with a intramural abscess. This abscess is too small to drain We will plan maximal medical therapy See how he responds consider resection in the distant future after colonoscopy Discussed Condition With: Dr. Alia MERIDA Mr. Garcia - Attending Attestation CONSULTATION NOTE FOR SURGICAL ATTENDING, DR. EL ROJO I agree with above assessment and plan. The exam, history, and the medical decision-making described in the above note were completed with the assistance of the mid-level provider. I reviewed and agree with the findings presented. I attest that I had a [id number] encounter with the patient on the same day, and personally performed and documented my assessment and findings in the medical record. The following services were provided during this hospital visit: Chart data review, vital sign assessments/reviewing monitor data Review of consultations notes if present. Medication orders/review and/or management Ordering and/or reviewing lab tests Ordering and/or interpreting/reviewing x-rays and/or diagnostic studies Care of the patient and discussion of the patient with the care team Documentation time To help prompt me to consider important information that might be impacting today's encounter and assessment, Information from prior notes written by myself or my colleagues may have been "brought forward/copy and pasted" into today's note.
[2018-10-03] MEDS: Pantoprazole Inj 40 MG Vial IV.PUSH SCH ×2 (01:34→12:16)
[2018-10-03] MEDS: Ciprofloxacin 400 MG/200 ML 400 MG/200 ML PIGGYBACK IV.SIG SCH ×2 (01:34→13:10)
[2018-10-03] MEDS: Sod Chloride 0.9% Inj 1,000 ML IV.CONT SCH ×3 (03:46→22:46)
[2018-10-03 06:03] LABS: Baso % (Auto) 0.4 % (0.0-2.0); Eos % (Auto) 0.4 % (0.0-4.0); Hematocrit 41.8 % (39.0-51.0); Hemoglobin 14.6 gm/dL (13.0-17.0); Lymph # (Auto) 1.4 th/mm3 (1.0-4.8); Lymph % (Auto) 14.4 % (9.0-44.0); Mean Corpuscular Hemoglobin 33.7 pg (27.0-34.0); Mean Corpuscular Volume 96.3 fL (80.0-100.0); Mean Platelet Volume 7.9 fL (7.0-11.0); Mono # (Auto) 1.1 th/mm3 (0.0-0.9); Mono % (Auto) 10.8 % (0.0-8.0); Neut # (Auto) 7.3 th/mm3 (1.8-7.7); Platelet Count 221 th/mm3 (150-450); Red Blood Count 4.34 mil/mm3 (4.50-5.90); Red Cell Distribution Width 13.3 % (11.6-17.2); White Blood Count 9.9 th/mm3 (4.0-11.0)
[2018-10-03] MEDS: Sodium Chloride 0.9% 2 ML Flush BID IV.FLUSH SCH ×2 (08:53→21:07)
--- NOTE | 2018-10-03 09:04 | P.PN ---
Subjective Interval history: This is a pleasant 58 y/o male admitted on 09/29/18, with Abdominal Pain, Fever 101, has tobacco dependence history of GERD, history of Diverticulitis, during this admission admitted due to Diverticulitis now due to Perforation and Abscess was consulted General Surgery. as per GI specialist the patient has Intramural abscess, recommended for liquid diet, Cipro and Flagyl, PPIs, Colonoscopy 6 to 8 weeks post discharge , Seen by General Surgery Non Operative management at this time and probable resection in the future. 10/03: Stable in his bedroom, no complaint, no nausea, vomit or diarrhea. Physical Exam Vital signs: Vital Signs 10/02/18 15:41 10/02/18 19:15 10/02/18 20:51 Temperature 99.0 F 98.7 F Pulse Rate 59 L 60 Respiratory Rate 18 17 18 Blood Pressure 131/74 128/63 Pulse Oximetry 96 96 10/02/18 23:40 10/03/18 04:00 10/03/18 08:00 Temperature 97.9 F 98.0 F 97.3 F L Pulse Rate 59 L 60 63 Respiratory Rate 18 18 20 Blood Pressure 148/77 H 138/77 128/58 L Pulse Oximetry 96 96 98 Intake & Output 10/02/18 10/03/18 10/03/18 18:59 06:59 18:59 Intake Total 400 / 400 1360 / 1360 Balance 400 / 400 1360 / 1360 Weight 84.2 kg Intake: IV 400 / 400 400 / 400 Cipro 400 MG/200 ML Inj 400 mg 200 / 200 200 / 200 In 200 ml @ 200 mls/hr IV.SIG Q12H [facility] Rx#:[id number] Flagyl 500 MG Inj 100 ML @ 100 200 / 200 200 / 200 mls/hr IV.SIG Q6H [facility] Rx#: [id number] Oral 960 / 960 Other: # Voids 2 10 Date of Last Bowel Movement 10/03/18 10/03/18 # Bowel Movements 1 Narrative: GENERAL: Well-nourished, well-developed adult male in no obvious distress. SKIN: Warm and dry. HEAD: Atraumatic. Normocephalic. CARDIOVASCULAR: Regular rate and rhythm. RESPIRATORY: No accessory muscle use. Clear to auscultation. Breath sounds equal bilaterally. GASTROINTESTINAL: Abdomen soft, tender LLQ, non-distended. Positive bowel sounds. MUSCULOSKELETAL: Extremities without clubbing, cyanosis, or edema. No obvious deformities. NEUROLOGICAL: Awake and alert. No obvious cranial nerve deficits. Motor grossly within normal limits. Normal speech. PSYCHIATRIC: Appropriate mood and affect; insight and judgment good. Results - Labs CBC & Chem 7: 10/03/18 05:15 10/02/18 06:06 Laboratory Results - last 24 hr 10/03/18 05:15 WBC 9.9 RBC 4.34 L Hgb 14.6 Hct 41.8 MCV 96.3 MCH 33.7 MCHC 35.0 RDW 13.3 Plt Count 221 MPV 7.9 Neut % (Auto) 74.0 H Lymph % (Auto) 14.4 [place] % (Auto) 10.8 H Eos % (Auto) 0.4 Baso % (Auto) 0.4 Neut # (Auto) 7.3 Lymph # (Auto) 1.4 [place] # (Auto) 1.1 H Eos # (Auto) 0.0 Baso # (Auto) 0.0 WBC Differential . Differential Comment Auto diff final - Procedures None Assessment and Plan - Assessment (1) Diverticulitis of intestine with abscess Code(s): K57.80 - Diverticulitis of intestine, part unspecified, with perforation and abscess without bleeding Status: Acute - Plan Patient is a 58-year-old male with a past medical history of diverticulitis and GERD. He presented to the emergency room with left lower quadrant and suprapubic pain times 5 days. Diverticulitis -GI consulted -recommending colonoscopy and EGD as outpatient after 6-8 weeks of healing. General surgery non surgical at this time -continue on Cipro and Flagyl -Pain control as needed -Tobacco dependence strongly recommended to stop smoking. DVT prophylaxis: SCDs; patient is ambulatory Code Status: Full code. Discussed Condition With: Patient and Nurse. Discharge Planning: Awaiting final by GI specialist for discharge. (1) Diverticulitis of intestine with abscess Qualifiers: Diverticulitis site: large intestine Diverticulitis bleeding: without bleeding Qualified Code(s): K57.20 - Diverticulitis of large intestine with perforation and abscess without bleeding
--- NOTE | 2018-10-03 10:26 | P.PNGS ---
Subjective Patient reports: feels better, flatus, bowel movement Interval history: DAILY PROGRESS NOTE FOR SURGICAL ATTENDING, DR. SIMONA BO Resting in bed Reports pain is better today Physical Exam Vital signs: Vital Signs 10/02/18 15:41 10/02/18 19:15 10/02/18 20:51 Temperature 99.0 F 98.7 F Pulse Rate 59 L 60 Respiratory Rate 18 17 18 Blood Pressure 131/74 128/63 Pulse Oximetry 96 96 10/02/18 23:40 10/03/18 04:00 10/03/18 08:00 Temperature 97.9 F 98.0 F 97.3 F L Pulse Rate 59 L 60 63 Respiratory Rate 18 18 20 Blood Pressure 148/77 H 138/77 128/58 L Pulse Oximetry 96 96 98 Intake & Output 10/02/18 10/03/18 10/03/18 18:59 06:59 18:59 Intake Total 400 / 400 1360 / 1360 100 / 100 Balance 400 / 400 1360 / 1360 100 / 100 Weight 84.2 kg Intake: IV 400 / 400 400 / 400 100 / 100 Cipro 400 MG/200 ML Inj 400 mg 200 / 200 200 / 200 In 200 ml @ 200 mls/hr IV.SIG Q12H [facility] Rx#:[id number] Flagyl 500 MG Inj 100 ML @ 100 200 / 200 200 / 200 100 / 100 mls/hr IV.SIG Q6H [facility] Rx#: [id number] Oral 960 / 960 Other: # Voids 2 10 Date of Last Bowel Movement 10/03/18 10/03/18 # Bowel Movements 1 Narrative: Alert and awake Abd: soft; minimal LLQ abdominal pain with palpation Results - Labs 10/03/18 05:15 10/02/18 06:06 Laboratory Results - last 24 hr 10/03/18 05:15 WBC 9.9 RBC 4.34 L Hgb 14.6 Hct 41.8 MCV 96.3 MCH 33.7 MCHC 35.0 RDW 13.3 Plt Count 221 MPV 7.9 Neut % (Auto) 74.0 H Lymph % (Auto) 14.4 [place] % (Auto) 10.8 H Eos % (Auto) 0.4 Baso % (Auto) 0.4 Neut # (Auto) 7.3 Lymph # (Auto) 1.4 [place] # (Auto) 1.1 H Eos # (Auto) 0.0 Baso # (Auto) 0.0 WBC Differential . Differential Comment Auto diff final Assessment and Plan - Assessment (1) Diverticulitis of intestine with abscess Code(s): K57.80 - Diverticulitis of intestine, part unspecified, with perforation and abscess without bleeding Status: Acute Plan: 58 year old male with diverticulitis -WBC trending down -Plan to continue IV Cipro/Flagyl -Advance to full liquid diet -Discussed non operative treatment (IV antibiotics) vs operative intervention ( sigmoid resection with possible colostomy) -Patient will require outpatient GI colonoscopy in about 6-8 weeks for evaluation of the sigmoid and likely sigmoid resection electively -I have asked CM to assist to see if patient can apply for patient assistance - Attending Attestation NOTE FOR SURGICAL ATTENDING, DR. SIMONA BO Patient having diarrhea now Better pain Continue current management I agree with above assessment and plan. The exam, history, and the medical decision-making described in the above note were completed with the assistance of the mid-level provider. I reviewed and agree with the findings presented. I attest that I had a [id number] encounter with the patient on the same day, and personally performed and documented my assessment and findings in the medical record. The following services were provided during this hospital visit: Chart data review, vital sign assessments/reviewing monitor data Review of consultations notes if present. Medication orders/review and/or management Ordering and/or reviewing lab tests Ordering and/or interpreting/reviewing x-rays and/or diagnostic studies Care of the patient and discussion of the patient with the care team Documentation time To help prompt me to consider important information that might be impacting today's encounter and assessment, Information from prior notes written by myself or my colleagues may have been "brought forward/copy and pasted" into today's note. (1) Diverticulitis of intestine with abscess Qualifiers: Diverticulitis site: large intestine Diverticulitis bleeding: without bleeding Qualified Code(s): K57.20 - Diverticulitis of large intestine with perforation and abscess without bleeding
--- NOTE | 2018-10-03 14:32 | P.PNGI ---
Subjective Interval history: Patient laying supine in bed Spouse at bedside Reports decreasing abdominal cramping States hungry <Saniya Moseleyy - Last Filed: 10/03/18 14:27> Physical Exam Vital signs: Vital Signs 10/02/18 15:41 10/02/18 19:15 10/02/18 20:51 Temperature 99.0 F 98.7 F Pulse Rate 59 L 60 Respiratory Rate 18 17 18 Blood Pressure 131/74 128/63 Pulse Oximetry 96 96 10/02/18 23:40 10/03/18 04:00 10/03/18 08:00 Temperature 97.9 F 98.0 F 97.3 F L Pulse Rate 59 L 60 63 Respiratory Rate 18 18 20 Blood Pressure 148/77 H 138/77 128/58 L Pulse Oximetry 96 96 98 10/03/18 12:00 10/03/18 14:22 Temperature 98 F Pulse Rate 58 L Respiratory Rate 18 18 Blood Pressure 155/71 H Pulse Oximetry 96 Intake & Output 10/02/18 10/03/18 10/03/18 18:59 06:59 18:59 Intake Total 400 / 400 1360 / 1360 1300 / 1300 Balance 400 / 400 1360 / 1360 1300 / 1300 Weight 84.2 kg Intake: IV 400 / 400 400 / 400 1300 / 1300 NS Inj 1,000 ML @ 100 mls/hr IV 1000 / 1000 .CONT .Q10H [facility] Rx#:[id number] Cipro 400 MG/200 ML Inj 400 mg 200 / 200 200 / 200 200 / 200 In 200 ml @ 200 mls/hr IV.SIG Q12H [facility] Rx#:[id number] Flagyl 500 MG Inj 100 ML @ 100 200 / 200 200 / 200 100 / 100 mls/hr IV.SIG Q6H [facility] Rx#: [id number] Oral 960 / 960 Other: # Voids 2 10 Date of Last Bowel Movement 10/03/18 10/03/18 # Bowel Movements 1 - Constitutional no acute distress - Routine HEENT Exam Head: Present: normocephalic - Routine Respiratory Exam Absent: accessory muscle use - Routine Cardiovascular Exam Present: RRR - Routine Abdominal Exam Present: soft, normoactive bowel sounds. Absent: tenderness, distended, guarding, firm - Routine Skin Exam Present: dry, warm - Routine Neurological Exam Present: alert, oriented X3 - Routine Psychiatric Exam Present: normal affect, cooperative <Moseley,Kacy - Last Filed: 10/03/18 14:27> Vital signs: Vital Signs 10/02/18 19:15 10/02/18 20:51 10/02/18 23:40 Temperature 98.7 F 97.9 F Pulse Rate 60 59 L Respiratory Rate 17 18 18 Blood Pressure 128/63 148/77 H Pulse Oximetry 96 96 10/03/18 04:00 10/03/18 08:00 10/03/18 12:00 Temperature 98.0 F 97.3 F L 98 F Pulse Rate 60 63 58 L Respiratory Rate 18 20 18 Blood Pressure 138/77 128/58 L 155/71 H Pulse Oximetry 96 98 96 10/03/18 14:22 10/03/18 16:00 Temperature 98.2 F Pulse Rate 57 L Respiratory Rate 18 18 Blood Pressure 148/76 H Pulse Oximetry 96 Intake & Output 10/02/18 10/03/18 10/03/18 18:59 06:59 18:59 Intake Total 400 / 400 1360 / 1360 1400 / 1400 Balance 400 / 400 1360 / 1360 1400 / 1400 Weight 84.2 kg Intake: IV 400 / 400 400 / 400 1400 / 1400 NS Inj 1,000 ML @ 100 mls/hr IV 1000 / 1000 .CONT .Q10H [facility] Rx#:[id number] Cipro 400 MG/200 ML Inj 400 mg 200 / 200 200 / 200 200 / 200 In 200 ml @ 200 mls/hr IV.SIG Q12H [facility] Rx#:[id number] Flagyl 500 MG Inj 100 ML @ 100 200 / 200 200 / 200 200 / 200 mls/hr IV.SIG Q6H [facility] Rx#: [id number] Oral 960 / 960 Other: # Voids 2 10 Date of Last Bowel Movement 10/03/18 10/03/18 # Bowel Movements 1 <Jeanna Brito - Last Filed: 10/03/18 16:27> Results - Labs CBC & Chem 7: 10/03/18 05:15 10/02/18 06:06 Laboratory Results - last 24 hr 10/03/18 05:15 WBC 9.9 RBC 4.34 L Hgb 14.6 Hct 41.8 MCV 96.3 MCH 33.7 MCHC 35.0 RDW 13.3 Plt Count 221 MPV 7.9 Neut % (Auto) 74.0 H Lymph % (Auto) 14.4 [place] % (Auto) 10.8 H Eos % (Auto) 0.4 Baso % (Auto) 0.4 Neut # (Auto) 7.3 Lymph # (Auto) 1.4 [place] # (Auto) 1.1 H Eos # (Auto) 0.0 Baso # (Auto) 0.0 WBC Differential . Differential Comment Auto diff final <Kacy Moseley - Last Filed: 10/03/18 14:27> - Labs CBC & Chem 7: 10/03/18 05:15 10/02/18 06:06 Laboratory Results - last 24 hr 10/03/18 05:15 WBC 9.9 RBC 4.34 L Hgb 14.6 Hct 41.8 MCV 96.3 MCH 33.7 MCHC 35.0 RDW 13.3 Plt Count 221 MPV 7.9 Neut % (Auto) 74.0 H Lymph % (Auto) 14.4 [place] % (Auto) 10.8 H Eos % (Auto) 0.4 Baso % (Auto) 0.4 Neut # (Auto) 7.3 Lymph # (Auto) 1.4 [place] # (Auto) 1.1 H Eos # (Auto) 0.0 Baso # (Auto) 0.0 WBC Differential . Differential Comment Auto diff final <Jeanna Brito - Last Filed: 10/03/18 16:27> Assessment and Plan - Plan Assessment Diverticulitis with intramural abscesspatient reports 4-5 previous episodes of diverticulitis, most recently in January of this year. Pt complaining of mid lower abdominal pain that began on but became unbearable on Saturday after eating nuts. Denies previous colonoscopy. CT abd/pelvis W IV contrast (09/30) prominent sigmoid diverticulitis with small intramural abscess involving the proximal sigmoid. Acid reflux- Pt reports episodes of GERD. Takes Prilosec OTC on an as needed basis. Has never had EGD 10/02/2018 Diverticulitis with intramural abscess Patient reporting mild abdominal intermittent tenderness BM last night, loose to soft stools. No BM yet today WBC 14.6 hemoglobin 15.4 hematocrit 43.9 10/03/2018 WBC 9.9 hemoglobin 14.6 hematocrit 41.8 Patient reports decreasing abdominal tenderness One BM today, no reported bleeding Plan -Will advance to full liquid diet -Cipro/Flagyl -Analgesics and antiemetics as per attending -PPI -IV hydration -Supportive care -Further recommendations to follow Patient has been seen and examined by myself and Dr. Brito and this note is written on her behalf - Attending Attestation Dr. Brito <Kacy Moseley - Last Filed: 10/03/18 14:27> - Attending Attestation seen, examined agree with above repeat ct abd/pelvis in am <Jeanna Brito - Last Filed: 10/03/18 16:27>
[2018-10-03] MEDS ORDERED: Diatrizoate Meglum/Diatrizoate Sod Liq 9 ML UDC PO ONE (17:00)
[2018-10-03 18:00] LABS: Albumin 2.9 g/dL (3.4-5.0)
[2018-10-03 18:02] LABS: Total Protein 6.8 g/dL (6.4-8.2)
[2018-10-03] MEDS: oxyCODONE/Acetaminophen 10/325 Tablet PO PRN (21:07)
--- NOTE | 2018-10-04 00:09 | CT ---
EXAM DATE: 10/04/2018 12:02 AM EST AGE/SEX: 58 years / Male INDICATIONS: Follow up diverticulitis. CLINICAL DATA: This is the patient's subsequent encounter. Patient reports that signs and symptoms h ave been present for 3 days and indicates a pain score of 5/10. MEDICAL/SURGICAL HISTORY: Gastroesophageal reflux disease. Diverticulitis. Tonsillectomy. ORAL CONTRAST: No oral contrast ingested. RADIATION DOSE: 6.64 CTDI (mGy) COMPARISON: [facility], CT ABDOMEN & PELVIS W CONTRAST, 09/30/2018. . TECHNIQUE: Multiple contiguous axial images were obtained through the abdomen and pelvis following b olus infusion of 96 ml Omnipaque 350 (iohexol) nonionic water-soluble contrast as a single exam dos e. No oral contrast ingested. Using automated exposure control and adjustment of the mA and/or kV ac cording to patient size, radiation dose was kept as low as reasonably achievable to obtain optimal di agnostic quality images. DICOM format image data is available electronically for review and comparis on. FINDINGS: Lower Lungs: The visualized lower lungs are clear. Liver: The liver has a homogeneous density without space-occupying lesion. There is no dilation of th e biliary tree. Gallbladder is unremarkable. Spleen: Homogeneous density without enlargement. Pancreas: Unremarkable without mass or calcification. Kidneys: Normal in size and shape. No evidence of mass or hydronephrosis. Adrenal Glands: Unremarkable. Aorta: The aorta and proximal iliac vessels are grossly unremarkable without aneurysmal dilation. Bowel/Mesentery: Again seen is an acute infectious diverticulitis involving the sigmoid colon. There is a pocket of predominantly air adjacent to the sigmoid colon likely relating to an intramural absc ess that is decompressed into the bowel itself. Although the collection is larger it is almost comple tely air-filled whereas on the prior study it contained fluid. It measures 4.1 x 2.8 x 2.6 [address] ly where previously measured 3.1 x 1.6 x 2.0 cm. No free air. The inflammatory process involving the sigmoid colon and adjacent mesentery is slightly more pronounced from the prior study. No free air or free fluid. Remaining bowel structures are unremarkable. Abdominal Wall: Intact. Retroperitoneum: No evidence of adenopathy in the retrocrural, para-aortic, or deep pelvic regions. Bladder: Contours are smooth. Reproductive Organs: No abnormal masses or calcifications seen. Inguinal: The inguinal region is unremarkable without evidence of adenopathy. Bony Structures: A scoliotic and degenerative spine.. CONCLUSION: 1. The infectious process involving the sigmoid colon has progressed slightly from the prior examina tion. The intramural abscess has apparently decompressed into the lumen of the bowel. Although the ca vity is larger from the prior study the cavity is air-filled as opposed to fluid-filled on the prior study. Electronically signed by: Pascual Bowden MD 10/04/2018 12:07 AM EST
[2018-10-04] MEDS: Pantoprazole Inj 40 MG Vial IV.PUSH SCH ×2 (02:02→13:23)
[2018-10-04] MEDS: Ciprofloxacin 400 MG/200 ML 400 MG/200 ML PIGGYBACK IV.SIG SCH ×2 (02:03→13:23)
--- NOTE | 2018-10-04 08:41 | P.PN ---
Subjective Interval history: This is a pleasant 58 y/o male admitted on 09/29/18, with Abdominal Pain, Fever 101, has tobacco dependence history of GERD, history of Diverticulitis, during this admission admitted due to Diverticulitis now due to Perforation and Abscess was consulted General Surgery. as per GI specialist the patient has Intramural abscess, recommended for liquid diet, Cipro and Flagyl, PPIs, Colonoscopy 6 to 8 weeks post discharge , Seen by General Surgery Non Operative management at this time and probable resection in the future. 10/04: Improved WBC count, also vital signs within normal limites. okay for discharge from General Surgery and GI specialist no nausea, vomit or diarrhea. Physical Exam Vital signs: Vital Signs 10/03/18 12:00 10/03/18 14:22 10/03/18 16:00 Temperature 98 F 98.2 F Pulse Rate 58 L 57 L Respiratory Rate 18 18 18 Blood Pressure 155/71 H 148/76 H Pulse Oximetry 96 96 10/03/18 19:15 10/03/18 21:55 10/03/18 23:40 Temperature 98.4 F 97.9 F Pulse Rate 61 57 L Respiratory Rate 18 Blood Pressure 160/77 H 141/76 H Pulse Oximetry 97 96 10/04/18 03:42 10/04/18 03:45 10/04/18 06:56 Temperature 97.7 F Pulse Rate 52 L Respiratory Rate 18 17 18 Blood Pressure 130/63 Pulse Oximetry 97 Intake & Output 10/03/18 10/04/18 10/04/18 18:59 06:59 18:59 Intake Total 3040 / 3040 1200 / 1200 Balance 3040 / 3040 1200 / 1200 Intake: IV 1400 / 1400 400 / 400 NS Inj 1,000 ML @ 100 mls/hr IV 1000 / 1000 .CONT .Q10H [facility] Rx#:[id number] Cipro 400 MG/200 ML Inj 400 mg 200 / 200 200 / 200 In 200 ml @ 200 mls/hr IV.SIG Q12H [facility] Rx#:[id number] Flagyl 500 MG Inj 100 ML @ 100 200 / 200 200 / 200 mls/hr IV.SIG Q6H [facility] Rx#: [id number] Oral 1640 / 1640 800 / 800 Other: # Voids 8 6 Date of Last Bowel Movement 10/03/18 10/04/18 # Bowel Movements 1 1 Narrative: GENERAL: Well-nourished, well-developed adult male in no obvious distress. SKIN: Warm and dry. HEAD: Atraumatic. Normocephalic. CARDIOVASCULAR: Regular rate and rhythm. RESPIRATORY: No accessory muscle use. Clear to auscultation. Breath sounds equal bilaterally. GASTROINTESTINAL: Abdomen soft, tender LLQ, non-distended. Positive bowel sounds. MUSCULOSKELETAL: Extremities without clubbing, cyanosis, or edema. No obvious deformities. NEUROLOGICAL: Awake and alert. No obvious cranial nerve deficits. Motor grossly within normal limits. Normal speech. PSYCHIATRIC: Appropriate mood and affect; insight and judgment good. Results - Labs CBC & Chem 7: 10/03/18 05:15 10/02/18 06:06 Laboratory Results - last 24 hr 10/03/18 17:16 Total Bilirubin 0.4 Direct Bilirubin 0.1 Indirect Bilirubin 0.3 AST 13 L ALT 18 Alkaline Phosphatase 86 Total Protein 6.8 D Albumin 2.9 L - Imaging Impressions Abdomen/Pelvis CT 10/03/18 00:00 CONCLUSION: 1. The infectious process involving the sigmoid colon has progressed slightly from the prior examination. The intramural abscess has apparently decompressed into the lumen of the bowel. Although the cavity is larger from the prior study the cavity is air-filled as opposed to fluid-filled on the prior study. - Procedures None Assessment and Plan - Assessment (1) Diverticulitis of intestine with abscess Code(s): K57.80 - Diverticulitis of intestine, part unspecified, with perforation and abscess without bleeding Status: Acute - Plan Patient is a 58-year-old male with a past medical history of diverticulitis and GERD. He presented to the emergency room with left lower quadrant and suprapubic pain times 5 days. Diverticulitis -GI consulted -recommending colonoscopy and EGD as outpatient after 6-8 weeks of healing. General surgery non surgical at this time -continue on Cipro and Flagyl -Improving condition, no nausea, vomit or diarrhea, advanced diet to Regular diet and the patient tolerated, recommended by General Surgery for discharge Home on by mouth antibiotics. -Tobacco dependence strongly recommended to stop smoking. -Oral thrush on Nystatin by mouth, also given by General Surgery one dose of Diflucan DVT prophylaxis: SCDs; patient is ambulatory Code Status: Full Code. Discussed Condition With: Patient, Nurse and his . Discharge Planning: Discharge Home. (1) Diverticulitis of intestine with abscess Qualifiers: Diverticulitis site: large intestine Diverticulitis bleeding: without bleeding Qualified Code(s): K57.20 - Diverticulitis of large intestine with perforation and abscess without bleeding
[2018-10-04] MEDS: Sodium Chloride 0.9% 2 ML Flush BID IV.FLUSH SCH (08:53)
[2018-10-04] MEDS: Sod Chloride 0.9% Inj 1,000 ML IV.CONT SCH (09:51)
[2018-10-04] MEDS ORDERED: Nystatin Liq 500,000 UNIT/5 ML UDC SWISH-SWAL SCH (13:00)
--- NOTE | 2018-10-04 13:09 | P.PNGI ---
Subjective Interval history: Mild abdominal pain Physical Exam Vital signs: Vital Signs 10/03/18 14:22 10/03/18 16:00 10/03/18 19:15 Temperature 98.2 F 98.4 F Pulse Rate 57 L 61 Respiratory Rate 18 18 Blood Pressure 148/76 H 160/77 H Pulse Oximetry 96 97 10/03/18 21:55 10/03/18 23:40 10/04/18 03:42 Temperature 97.9 F Pulse Rate 57 L Respiratory Rate 18 18 18 Blood Pressure 141/76 H Pulse Oximetry 96 10/04/18 03:45 10/04/18 06:56 10/04/18 08:40 Temperature 97.7 F 97.9 F Pulse Rate 52 L 55 L Respiratory Rate 17 18 Blood Pressure 130/63 164/85 H Pulse Oximetry 97 96 10/04/18 09:17 Temperature Pulse Rate Respiratory Rate 18 Blood Pressure Pulse Oximetry Intake & Output 10/03/18 10/04/18 10/04/18 18:59 06:59 18:59 Intake Total 3040 / 3040 1200 / 1200 1100 / 1100 Balance 3040 / 3040 1200 / 1200 1100 / 1100 Intake: IV 1400 / 1400 400 / 400 1100 / 1100 NS Inj 1,000 ML @ 100 mls/hr IV 1000 / 1000 1000 / 1000 .CONT .Q10H [facility] Rx#:[id number] Cipro 400 MG/200 ML Inj 400 mg 200 / 200 200 / 200 In 200 ml @ 200 mls/hr IV.SIG Q12H [facility] Rx#:[id number] Flagyl 500 MG Inj 100 ML @ 100 200 / 200 200 / 200 100 / 100 mls/hr IV.SIG Q6H [facility] Rx#: [id number] Oral 1640 / 1640 800 / 800 Other: # Voids 8 6 Date of Last Bowel Movement 10/03/18 10/04/18 10/04/18 # Bowel Movements 1 1 - Constitutional no acute distress - Routine HEENT Exam Head: Present: normocephalic Eye: Present: EOMI - Routine Respiratory Exam Present: CTA bilaterally - Routine Cardiovascular Exam Present: RRR - Routine Abdominal Exam Present: soft, normoactive bowel sounds, tenderness Results - Labs CBC & Chem 7: 10/03/18 05:15 10/02/18 06:06 Laboratory Results - last 24 hr 10/03/18 17:16 Total Bilirubin 0.4 Direct Bilirubin 0.1 Indirect Bilirubin 0.3 AST 13 L ALT 18 Alkaline Phosphatase 86 Total Protein 6.8 D Albumin 2.9 L - Imaging Impressions Abdomen/Pelvis CT 10/03/18 00:00 CONCLUSION: 1. The infectious process involving the sigmoid colon has progressed slightly from the prior examination. The intramural abscess has apparently decompressed into the lumen of the bowel. Although the cavity is larger from the prior study the cavity is air-filled as opposed to fluid-filled on the prior study. - Procedures None Assessment and Plan - Plan Seen and examined, doing well. Minimal abdominal/epigastric discomfort. Low fat diet. Out patient cholecystectomy.
--- NOTE | 2018-10-04 13:26 | P.PNGS ---
Subjective Patient reports: feels better, pain is less, bowel movement Physical Exam Vital signs: Vital Signs 10/03/18 14:22 10/03/18 16:00 10/03/18 19:15 Temperature 98.2 F 98.4 F Pulse Rate 57 L 61 Respiratory Rate 18 Blood Pressure 148/76 H 160/77 H Pulse Oximetry 96 97 10/03/18 21:55 10/03/18 23:40 10/04/18 03:42 Temperature 97.9 F Pulse Rate 57 L Respiratory Rate 18 Blood Pressure 141/76 H Pulse Oximetry 96 10/04/18 03:45 10/04/18 06:56 10/04/18 08:40 Temperature 97.7 F 97.9 F Pulse Rate 52 L 55 L Respiratory Rate 17 18 Blood Pressure 130/63 164/85 H Pulse Oximetry 97 96 10/04/18 09:17 Temperature Pulse Rate Respiratory Rate 18 Blood Pressure Pulse Oximetry Intake & Output 10/03/18 10/04/18 10/04/18 18:59 06:59 18:59 Intake Total 3040 / 3040 1200 / 1200 1100 / 1100 Balance 3040 / 3040 1200 / 1200 1100 / 1100 Intake: IV 1400 / 1400 400 / 400 1100 / 1100 NS Inj 1,000 ML @ 100 mls/hr IV 1000 / 1000 1000 / 1000 .CONT .Q10H [facility] Rx#:[id number] Cipro 400 MG/200 ML Inj 400 mg 200 / 200 200 / 200 In 200 ml @ 200 mls/hr IV.SIG Q12H [facility] Rx#:[id number] Flagyl 500 MG Inj 100 ML @ 100 200 / 200 200 / 200 100 / 100 mls/hr IV.SIG Q6H [facility] Rx#: [id number] Oral 1640 / 1640 800 / 800 Other: # Voids 8 6 Date of Last Bowel Movement 10/03/18 10/04/18 10/04/18 # Bowel Movements 1 1 - Constitutional no acute distress - Routine Abdominal Exam Present: soft, normoactive bowel sounds. Absent: tenderness, distended Results - Labs 10/03/18 05:15 10/02/18 06:06 Laboratory Results - last 24 hr 10/03/18 17:16 Total Bilirubin 0.4 Direct Bilirubin 0.1 Indirect Bilirubin 0.3 AST 13 L ALT 18 Alkaline Phosphatase 86 Total Protein 6.8 D Albumin 2.9 L - Imaging Imaging: ITS Impressions Abdomen/Pelvis CT 10/03/18 00:00 CONCLUSION: 1. The infectious process involving the sigmoid colon has progressed slightly from the prior examination. The intramural abscess has apparently decompressed into the lumen of the bowel. Although the cavity is larger from the prior study the cavity is air-filled as opposed to fluid-filled on the prior study. Assessment and Plan - Assessment (1) Diverticulitis of intestine with abscess Code(s): K57.80 - Diverticulitis of intestine, part unspecified, with perforation and abscess without bleeding Status: Acute Plan: 58 year old male with diverticulitis -WBC trending down -Plan to DC home with oral antibiotics -Advance to full liquid diet -Patient will require outpatient GI colonoscopy in about 6-8 weeks for evaluation of the sigmoid and likely sigmoid resection electively -I have asked CM to assist to see if patient can apply for patient assistance (1) Diverticulitis of intestine with abscess Qualifiers: Diverticulitis site: large intestine Diverticulitis bleeding: without bleeding Qualified Code(s): K57.20 - Diverticulitis of large intestine with perforation and abscess without bleeding
[2018-10-04 13:53] VITALS: BP 151/82; PULSE 56; TEMP 98.1; O2SAT 99
--- NOTE | 2018-10-04 15:03 | P.DS ---
Date of admission: 10/01/18 13:31 Primary care physician: UNKNOWN Attending physician on discharge: Yuan Casillas Anticipated date of discharge: 10/04/18 Brief History from admission: Patient is a 58-year-old male who presented to the emergency room with a complaint of lower left quadrant and suprapubic abdominal pain for the last 5 days. He has a known history of diverticular colitis. Has previously had 4 other episodes but not as painful as this 1. He did take an antibiotic that his daughter gave him but he does not remember the name of it. He also states that he has been constipated and has not had a bowel movement in several days. He did take a laxative but it was not effective for him. He denies chest pain or shortness of breath. No nausea vomiting or diarrhea. He has had fevers and chills. Other past medical history is significant for GERD; patient does not have consistent primary care. Reports that he has controlled his acid reflux in the past with OTC Pepcid as needed. DS: Diagnosis - Discharge Diagnosis (1) Diverticulitis of intestine with abscess Status: Acute DS: Medications - Discharge Medications Prescriptions: ciprofloxacin HCl [Cipro] 500 mg PO Q12H #20 tab metronidazole [Flagyl] 500 mg PO TID #30 tab nystatin 5 ml SWISH-SWAL QID #140 ml DS: Summary Hospital Course: This is a pleasant 58 y/o male admitted on 09/29/18, with Abdominal Pain, Fever 101, has tobacco dependence history of GERD, history of Diverticulitis, during this admission admitted due to Diverticulitis now due to Perforation and Abscess was consulted General Surgery. as per GI specialist the patient has Intramural abscess, recommended for liquid diet, Cipro and Flagyl, PPIs, Colonoscopy 6 to 8 weeks post discharge , Seen by General Surgery Non Operative management at this time and probable resection in the future. 10/04: Improved WBC count, also vital signs within normal limites. okay for discharge from General Surgery and GI specialist no nausea, vomit or diarrhea. Assessment and Plan - Assessment (1) Diverticulitis of intestine with abscess Code(s): K57.80 - Diverticulitis of intestine, part unspecified, with perforation and abscess without bleeding Status: Acute - Plan Patient is a 58-year-old male with a past medical history of diverticulitis and GERD. He presented to the emergency room with left lower quadrant and suprapubic pain times 5 days. Diverticulitis -GI consulted -recommending colonoscopy and EGD as outpatient after 6-8 weeks of healing. General surgery non surgical at this time -continue on Cipro and Flagyl -Improving condition, no nausea, vomit or diarrhea, advanced diet to Regular diet and the patient tolerated, recommended by General Surgery for discharge Home on by mouth antibiotics. -Tobacco dependence strongly recommended to stop smoking. -Oral thrush on Nystatin by mouth, also given by General Surgery one dose of Diflucan DVT prophylaxis: SCDs; patient is ambulatory Code Status: Full Code. Discussed Condition With: Patient, Nurse and his . Discharge Planning: Discharge Home. (1) Diverticulitis of intestine with abscess Qualifiers: Diverticulitis site: large intestine Diverticulitis bleeding: without bleeding Qualified Code(s): K57.20 - Diverticulitis of large intestine with perforation and abscess without bleeding - Time Spent with Patient Total time spent providing and/or coordinating discharge services: Less than 30 minutes - Quality: VTE Deep Vein Thrombosis/Pulmonary Embolism Present on Admission: No Exam Vital signs: Vital Signs 10/03/18 16:00 10/03/18 19:15 10/03/18 21:55 Temperature 98.2 F 98.4 F Pulse Rate 57 L 61 Respiratory Rate 18 18 18 Blood Pressure 148/76 H 160/77 H Pulse Oximetry 96 97 10/03/18 23:40 10/04/18 03:42 10/04/18 03:45 Temperature 97.9 F 97.7 F Pulse Rate 57 L 52 L Respiratory Rate 18 18 17 Blood Pressure 141/76 H 130/63 Pulse Oximetry 96 97 10/04/18 06:56 10/04/18 08:40 10/04/18 09:17 Temperature 97.9 F Pulse Rate 55 L Respiratory Rate 18 18 Blood Pressure 164/85 H Pulse Oximetry 96 10/04/18 12:00 Temperature 98.1 F Pulse Rate 56 L Respiratory Rate 16 Blood Pressure 151/82 H Pulse Oximetry 99 Intake & Output 10/03/18 10/04/18 10/04/18 18:59 06:59 18:59 Intake Total 3040 / 3040 1200 / 1200 1100 / 1100 Balance 3040 / 3040 1200 / 1200 1100 / 1100 Intake: IV 1400 / 1400 400 / 400 1100 / 1100 NS Inj 1,000 ML @ 100 mls/hr IV 1000 / 1000 1000 / 1000 .CONT .Q10H [facility] Rx#:[id number] Cipro 400 MG/200 ML Inj 400 mg 200 / 200 200 / 200 In 200 ml @ 200 mls/hr IV.SIG Q12H [facility] Rx#:[id number] Flagyl 500 MG Inj 100 ML @ 100 200 / 200 200 / 200 100 / 100 mls/hr IV.SIG Q6H [facility] Rx#: [id number] Oral 1640 / 1640 800 / 800 Other: # Voids 8 6 Date of Last Bowel Movement 10/03/18 10/04/18 10/04/18 # Bowel Movements 1 1 Narrative: GENERAL: Well-nourished, well-developed adult male in no obvious distress. SKIN: Warm and dry. HEAD: Atraumatic. Normocephalic. CARDIOVASCULAR: Regular rate and rhythm. RESPIRATORY: No accessory muscle use. Clear to auscultation. Breath sounds equal bilaterally. GASTROINTESTINAL: Abdomen soft, tender LLQ, non-distended. Positive bowel sounds. MUSCULOSKELETAL: Extremities without clubbing, cyanosis, or edema. No obvious deformities. NEUROLOGICAL: Awake and alert. No obvious cranial nerve deficits. Motor grossly within normal limits. Normal speech. PSYCHIATRIC: Appropriate mood and affect; insight and judgment good. Results Procedures completed during hospitalization: None Labs on day of discharge: Labs from last 24 hours 10/03/18 17:16 Total Bilirubin 0.4 Direct Bilirubin 0.1 Indirect Bilirubin 0.3 AST 13 L ALT 18 Alkaline Phosphatase 86 Total Protein 6.8 D Albumin 2.9 L - Impressions ITS Impressions Abdomen/Pelvis CT 10/03/18 00:00 CONCLUSION: 1. The infectious process involving the sigmoid colon has progressed slightly from the prior examination. The intramural abscess has apparently decompressed into the lumen of the bowel. Although the cavity is larger from the prior study the cavity is air-filled as opposed to fluid-filled on the prior study. Discharge Plan - Discharge Disposition Patient Disposition: 01 Discharge Home - Discharge Condition Condition: Good - Discharge Order Discharge Orders: Discharge Order (Routine); Ordered 10/04/18 Ordered By: Yuan Casillas General Surgery Clear for Discharge (Routine); Ordered 10/04/18 Ordered By: Rashard Hudson - Discharge Details Anticipated Discharge Date: 10/04/18 Discharge Comment: Follow up with GI specialist doctor Jeanna Brito in two weeks - Physicians Team Primary Care Provider: UNKNOWN, Attending Provider: Yuan Casillas Other Providers: Jeanna Brito MD ; El Rojo MD - Rxs /Orders / Referrals /Forms Prescriptions: New ciprofloxacin HCl [Cipro] 500 mg Tablet 500 mg PO Q12H Qty: 20 RF: 0 metronidazole [Flagyl] 500 mg Tablet 500 mg PO TID Qty: 30 RF: 0 nystatin 100,000 unit/mL Suspension 5 ml SWISH-SWAL QID Qty: 140 RF: 0 Referrals: UNKNOWN, [Primary Care Provider] - See Instructions Forms: Work Release/Restrictions - Discharge Instructions Patient Printed Instructions: Diverticulitis (DC), Deep Vein Thrombosis Prevention (DC) Additional Instructions: IN CASE OF EMERGENCY CALL 911 OR RETURN TO EMERGENCY ROOM COLONOSCOPY SUGGESTED IN 6-8 WEEKS LOW FAT DIET F/U WITH GI FOR POSSIBLE OUT PATIENT CHOLECYSTECTOMY - Post Discharge Care Plan Care Plan Goals: Your Health Problems: Goals to Promote Your Health: * To prevent worsening of your condition * To maintain your health at the optimal level Directions to Meet Your Goals: * Take your medications as prescribed * Follow your dietary instruction * Follow activity as directed * Keep your appointments as scheduled * Take your immunizations and boosters as scheduled * If your symptoms worsen call your PCP * If no PCP go to Urgent Care or Emergency Room Smoking is dangerous to your health. Avoid second hand smoke. You may reach the 24-hour crisis hotline for domestic abuse at .
[2018-10-04 16:09] VITALS: RESP 18
== END 2018-10-04 16:20 | disposition home or self-care (01) ==
LOC: NEDDLT 09-30 03:30 → INTOOBSV 09-30 03:40 → NEPGCP 09-30 03:40 → N06 10-02 16:08
PROVIDERS: ADMIT Internal Medicine; ATTEND Internal Medicine